=== PATIENT | female | born 1985 | race Caucasian/White ===

== ENCOUNTER 2017-02-06 10:54 | Emergency (ER) | payer MEDICAID ==
--- NOTE | 2017-02-06 11:20 | EDM.PDOC ---
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 The patient's due date is 09/15/17 and she follows with [facility]. I saw this patient for lower abdominal pain and she had a quantitative beta of 1228. Her ultrasound was inconclusive and she has since followed up with Dr. Byrd and she has had an ultrasound in their office documenting a live IUP. Her last quantitative hCG was on January 13 and it was 11,983. The patient has been doing well with this with little vomiting no diarrhea no pelvic cramping no fevers chills chest pain coughing or shortness of breath. The patient last had sexual intercourse 2 nights ago and had no issues with it but yesterday she was having some lower abdominal cramping and she thought it was because she was more active than usual. This morning she woke up to go to the bathroom and did not have much cramping when she wiped after going to the bathroom there was dark brown blood. She subsequently went to the bathroom a second time and there were some clots and some brighter colored blood and she is concerned so she is here. She has no dysuria frequency or urgency no flank pain. She has slight bilateral lower abdominal/pelvic discomfort but is not as bad as last evening. She currently is not using a pad and is not passing any blood nor has she used one since this symptoms started. The patient admits that she is very scared because of her history of a demise trimester and "just wants to know that the baby has a heartbeat". Review of systems: As per history of present illness and below otherwise all systems reviewed and negative. Past medical history: As per history of present illness and as reviewed below otherwise noncontributory. Surgical history: As per history of present illness and as reviewed below otherwise noncontributory. Social history: No reported history of drug or alcohol abuse. Family history: As per history of present illness and as reviewed below otherwise noncontributory. Physical exam: General: Well-developed well-nourished female who is nontoxic and speaking clearly and easily in the ER and moves without distress. Her vital signs were noted by me HEENT: Atraumatic, normocephalic, negative for conjunctival pallor or scleral icterus, mucous membranes moist, throat clear, neck supple, nontender, trachea midline. Lungs: Clear to auscultation, breath sounds equal bilaterally, chest nontender. Heart: S1S2, regular, negative for clicks, rubs, or JVD. Abdomen: Soft, nondistended, nontender. Bowel sounds are normoactive and there are no masses rebound or guarding on palpation Negative for masses or hepatosplenomegaly. Negative for costovertebral tenderness. Pelvis: Stable nontender. Genitourinary: Patient currently has no bleeding in her underwear is not using a pad Rectal: Deferred. Extremities: Atraumatic, negative for cords or calf pain. Neurovascular unremarkable. Neuro: Awake, alert, oriented. Cranial nerves II through XII unremarkable. Cerebellum unremarkable. Motor and sensory unremarkable throughout. Exam nonfocal. Diagnostics: CBC UA urine culture if indicated ABO Rh serum quantitative hCG pelvic ultrasound We will attempt to find heart tones and proceed with ultrasound Therapeutics: none 1248: Case was discussed with ; she is aware of today's events as well as the labs and ultrasound and recommend 2 weeks of pelvic rest close followup and returning for any heavy bleeding. The patient was also made aware of all testing results. Impression: Threatened Definitive disposition and diagnosis as appropriate pending reevaluation and review of above. 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: Musculoskeletal History: Reports: None Psychiatric History: Reports: Anxiety, Bipolar, Depression, Panic attack - Infectious Disease History Infectious Disease History: Reports: Chicken pox Other Infectious Disease History: childhood - Past Surgical History Female Surgical History: Reports: section, D&C Other Female Surgeries/Procedures: 1 Musculoskeletal Surgical History: Reports: Other (see below) Other Musculoskeletal Surgeries/Procedures:: knee surgery, left Social & Family History - Family History Family Medical History: Noncontributory Hematologic: Reports: Other (see below) Other Hematologic Family History: unknown blood disease and lung disease-father, - Tobacco Use Smoking Status *Q: Current Every Day Smoker Years of Tobacco use: 15 Packs/Tins Daily: 0.5 Used Tobacco, but Quit: No Second Hand Smoke Exposure: No - Caffeine Use Caffeine Use: Reports: Coffee, Soda Caffeine Use Comment: 1 each /day - Alcohol Use Days Per Week of Alcohol Use: 1 Number of Drinks Per Day: 2 Total Drinks Per Week: 2 - Recreational Drug Use Recreational Drug Use: No Drug Use in Last 12 Months: Yes Recreational Drug Type: Reports: Marijuana/Hashish Recreational Drug Use Frequency: Not Used In Over 6 Months Recreational Drug Last Use: 2weeks ago - Living Situation & Occupation Living situation: Reports: single (With children) Occupation: employed ED ROS GENERAL - Review of Systems Review Of Systems: ROS reveals no pertinent complaints other than HPI. ED EXAM, GENERAL - Physical Exam Exam: See Below (See dictation) Course - Vital Signs Last Recorded V/S: Last Vital Signs Temp 36.8 C 02/06/17 12:13 Pulse 74 02/06/17 12:13 Resp 16 02/06/17 12:13 BP 111/63 02/06/17 12:13 Pulse Ox 98 02/06/17 12:13 - Orders/Labs/Meds Orders: Active Orders 24 hr Category Date Time Status OB 1st Tri Sgl 1st Gest [US] Stat Exams 02/06/17 11:13 Taken Labs: Laboratory Tests 02/06/17 02/06/17 02/06/17 Range/Units 11:12 11:45 11:45 WBC 7.78 (4.0-11.0) K/uL RBC 4.31 (4.30-5.90) M/uL Hgb 13.7 (12.0-16.0) g/dL Hct 40.0 (36.0-46.0) % MCV 92.8 (80.0-98.0) fL MCH 31.8 (27.0-32.0) pg MCHC 34.3 (31.0-37.0) g/dL RDW Std Deviation 42.5 (28.0-62.0) fl RDW Coeff of Hemant 13 (11.0-15.0) % Plt Count 225 (150-400) K/uL MPV 10.60 (7.40-12.00) fL Neut % (Auto) 63.4 (48.0-80.0) % Lymph % (Auto) 27.8 (16.0-40.0) % Gregg % (Auto) 6.8 (0.0-15.0) % Eos % (Auto) 1.7 (0.0-7.0) % Baso % (Auto) 0.3 (0.0-1.5) % Neut # (Auto) 4.9 (1.4-5.7) K/uL Lymph # (Auto) 2.2 (0.6-2.4) K/uL Gregg # (Auto) 0.5 (0.0-0.8) K/uL Eos # (Auto) 0.1 (0.0-0.7) K/uL Baso # (Auto) 0.0 (0.0-0.1) K/uL Nucleated RBC % 0.0 /100WBC Nucleated RBCs # 0 K/uL HCG, Quant 90104.6 mIU/mL Urine Color YELLOW Urine Appearance CLEAR Urine pH 7.0 (5.0-8.0) Ur Specific Arthur 1.010 (1.001-1.035) Urine Protein NEGATIVE (NEGATIVE) mg/dL Urine Glucose (UA) NEGATIVE (NEGATIVE) mg/dL Urine Ketones NEGATIVE (NEGATIVE) mg/dL Urine Occult Blood NEGATIVE (NEGATIVE) Urine Nitrite NEGATIVE (NEGATIVE) Urine Bilirubin NEGATIVE (NEGATIVE) Urine Urobilinogen 0.2 (<2.0) EU/dL Ur Leukocyte Esterase NEGATIVE (NEGATIVE) Urine RBC 0-1 (0-2/HPF) Urine WBC 0-1 (0-5/HPF) Ur Epithelial Cells RARE (NONE-FEW) Urine Bacteria RARE (NEGATIVE) Blood Type 02/06/17 Range/Units 11:45 WBC (4.0-11.0) K/uL RBC (4.30-5.90) M/uL Hgb (12.0-16.0) g/dL Hct (36.0-46.0) % MCV (80.0-98.0) fL MCH (27.0-32.0) pg MCHC (31.0-37.0) g/dL RDW Std Deviation (28.0-62.0) fl RDW Coeff of Hemant (11.0-15.0) % Plt Count (150-400) K/uL MPV (7.40-12.00) fL Neut % (Auto) (48.0-80.0) % Lymph % (Auto) (16.0-40.0) % Gregg % (Auto) (0.0-15.0) % Eos % (Auto) (0.0-7.0) % Baso % (Auto) (0.0-1.5) % Neut # (Auto) (1.4-5.7) K/uL Lymph # (Auto) (0.6-2.4) K/uL Gregg # (Auto) (0.0-0.8) K/uL Eos # (Auto) (0.0-0.7) K/uL Baso # (Auto) (0.0-0.1) K/uL Nucleated RBC % /100WBC Nucleated RBCs # K/uL HCG, Quant mIU/mL Urine Color Urine Appearance Urine pH (5.0-8.0) Ur Specific Arthur (1.001-1.035) Urine Protein (NEGATIVE) mg/dL Urine Glucose (UA) (NEGATIVE) mg/dL Urine Ketones (NEGATIVE) mg/dL Urine Occult Blood (NEGATIVE) Urine Nitrite (NEGATIVE) Urine Bilirubin (NEGATIVE) Urine Urobilinogen (<2.0) EU/dL Ur Leukocyte Esterase (NEGATIVE) Urine RBC (0-2/HPF) Urine WBC (0-5/HPF) Ur Epithelial Cells (NONE-FEW) Urine Bacteria (NEGATIVE) Blood Type O POSITIVE Departure - Departure Time of Disposition: 12:53 Disposition: Home, Self-Care 01 Condition: good Clinical Impression: Threatened Forms: ED Department Discharge Additional Instructions: The following information is given to patients seen in the emergency department who are being discharged to home. This information is to outline your options for follow-up care. We provide all patients seen in our emergency department with a follow-up referral. The need for follow-up, as well as the timing and circumstances, are variable depending upon the specifics of your emergency department visit. If you don't have a primary care physician on staff, we will provide you with a referral. We always advise you to contact your personal physician following an emergency department visit to inform them of the circumstance of the visit and for follow-up with them and/or the need for any referrals to a consulting specialist. The emergency department will also refer you to a specialist when appropriate. This referral assures that you have the opportunity for followup care with a specialist. All of these measure are taken in an effort to provide you with optimal care, which includes your followup. Under all circumstances we always encourage you to contact your private physician who remains a resource for coordinating your care. When calling for followup care, please make the office aware that this follow-up is from your recent emergency room visit. If for any reason you are refused follow-up, please contact the [facility] emergency department at and ask to speak to the emergency department charge nurse. [facility] [address] [address] Strict pelvic rest as we discussed for the next 2 weeks, push hydration and please call the clinic with any questions or problems. Return to ER as needed and as discussed - My Orders Last 24 Hours: My Active Orders 02/06/17 11:13 OB 1st Tri Sgl 1st Gest [US] Stat - Assessment/Plan Last 24 Hours: My Active Orders 02/06/17 11:13 OB 1st Tri Sgl 1st Gest [US] Stat
[2017-02-06 13:01] VITALS: BP 101/72
--- NOTE | 2017-02-07 18:27 | US ---
EXAM DATE: 02/06/17 PATIENT'S AGE: 31 Patient: RIGO GRADY Facility: [place], [place] Site . Site : 1985 Study: US OB Pelvis [id number] 12:08:40 PM Ordering Physician: Rafaela Su Final Report: HISTORY: with vaginal bleeding. TECHNIQUE: First trimester obstetric ultrasound. Transvaginal imaging was performed. FINDINGS: There is a living single intrauterine gestation with a crown-rump length of 2 cm. This correlates with an 8 week, 5 day gestation with an SHANNAN based on ultrasound measurements of 09/13/2017. heart rate is 183 beats per minute. Normal-appearing yolk sac. There is a approximately 1.8 x 1.0 x 1.6 cm subchorionic bleed inferior to the gestational sac, best appreciated on image # 3 of series 1. Neither ovary clearly seen. IMPRESSION: 1. Living single intrauterine gestation at 8 weeks, 5 days based on ultrasound measurements. 2. Small subchorionic hemorrhage present inferior to the gestational sac measuring 1.8 cm long dimension. 3. Report faxed on 02/07/2016 at 12:41 hours. Dictated by Nima Whelan MD @ 02/06/2017 12:38:34 PM Dictated by: Nima Whelan MD @ 02/06/2017 12:38:40 (Electronic Signature) Report Signed by Proxy and Original Signed Document filed in the Medical Record. MTDD
== END 2017-02-06 13:00 | disposition home or self-care (01) ==
LOC: MW.ED 10:54
DX: O20.0 Threatened abortion (principal); F41.9 Anxiety disorder, unspecified; F32.9 Major depressive disorder, single episode, unspecified; F17.210 Nicotine dependence, cigarettes, uncomplicated; Z88.0 Allergy status to penicillin; Z88.1 Allergy status to other antibiotic agents; Z88.2 Allergy status to sulfonamides
CPT/HCPCS: 36415; 76801; 76801-26; 81001; 84702; 85025; 86900; 86901; 99284; 99284-25

== ENCOUNTER 2017-09-09 04:56 | Inpatient (IN) | payer MEDICAID ==
[2017-09-09] MEDS ORDERED: Sodium Chloride 0.9% 10 ML Syringe FLUSH PRN (04:59)
[2017-09-09] MEDS ORDERED: Sodium Chloride 0.9% 2.5 ML Syringe FLUSH PRN (04:59)
[2017-09-09] MEDS ORDERED: Clindamycin Phosphate in D5W 900 MG in Premix Bag 1 BAG IV ONE ×2 (04:59)
[2017-09-09] MEDS ORDERED: Citric Acid/Sodium Citrate Solution 30 ML Cup PO SCH (05:00)
[2017-09-09] MEDS ORDERED: Oxytocin/0.9 % Sodium Chloride 30 UNIT/500 ML BAG IV SCH (05:00)
[2017-09-09] MEDS: Lactated Ringers 1,000 ML IV SCH ×4 (05:00→18:31)
[2017-09-09] MEDS ORDERED: ePHEDrine 50 MG/ML SDV ONE (07:13)
[2017-09-09] MEDS ORDERED: Ondansetron 4 MG/2 ML SDV ONE (07:13)
[2017-09-09] MEDS ORDERED: Morphine PF 10 MG/10 ML SDV ONE (07:13)
[2017-09-09] MEDS ORDERED: Oxytocin 10 Units/1 ML SDV ONE (07:13)
[2017-09-09] MEDS ORDERED: Sodium Chloride 0.9% 20 ML ONE ×2 (07:14→08:40)
[2017-09-09] MEDS ORDERED: Clindamycin Phosphate in D5W 50 ML IV ONE (07:48)
--- NOTE | 2017-09-09 07:56 | PCM.PREANE ---
Preanesthetic Assessment - Procedure Proposed Procedure: w/tubal ligation (approved) - Anesthesia/Transfusion/Family Hx Anesthesia History: Prior Anesthesia Without Reaction Other Type of Anesthesia Reaction Comment: DENIES ANY PROBLEMS WITH ANESTHESIA Family History of Anesthesia Reaction: No Transfusion History: No Prior Transfusion(s) Intubation History: Unknown - Review of Systems General: Other (obesity) Pulmonary: No Symptoms Cardiovascular: No Symptoms Gastrointestinal: Other (heartburn with pregnanacy, regurg this week) Neurological: Difficulty Walking (due to body habitus) Other: Reports: Depression, Anxiety (hx panic attacks) - Physical Assessment NPO Status Date: 09/08/17 NPO Status Time: 23:00 Height: 5 ft 2.5 in Weight: 260 lb ASA Class: 3 Mental Status: Alert & Oriented x3 Airway Class: Mallampati = 1 Dentition: Reports: Normal Dentition (lower), Dentures (upper denture) Thyro-Mental Finger Breadths: 4 Mouth Opening Finger Breadths: 3 ROM/Head Extension: Full Lungs: Clear to Auscultation, Normal Respiratory Effort Cardiovascular: Regular Rate, Regular Rhythm, No Murmurs - Lab Values: Laboratory Last Values WBC 15.13 K/uL (4.0-11.0) H 09/08/17 09:03 RBC 3.98 M/uL (4.30-5.90) L 09/08/17 09:03 Hgb 13.1 g/dL (12.0-16.0) 09/08/17 09:03 Hct 38.0 % (36.0-46.0) 09/08/17 09:03 MCV 95.5 fL (80.0-98.0) 09/08/17 09:03 MCH 32.9 pg (27.0-32.0) H 09/08/17 09:03 MCHC 34.5 g/dL (31.0-37.0) 09/08/17 09:03 RDW Std Deviation 50.1 fl (28.0-62.0) 09/08/17 09:03 RDW Coeff of Hemant 14 % (11.0-15.0) 09/08/17 09:03 Plt Count 229 K/uL (150-400) 09/08/17 09:03 MPV 11.30 fL (7.40-12.00) 09/08/17 09:03 Nucleated RBC % 0.0 /100WBC 09/08/17 09:03 Nucleated RBCs # 0 K/uL 09/08/17 09:03 Blood Type O POSITIVE 09/08/17 09:03 Antibody Screen NEGATIVE 09/08/17 09:03 - Allergies Allergies/Adverse Reactions: Allergies Allergy/AdvReac Type Severity Reaction Status Date / Time amoxicillin [Amoxicillin] Allergy Hives Verified 02/06/17 11:02 Penicillins Allergy Hives Verified 02/06/17 11:02 Sulfa (Sulfonamide Allergy Hives Verified 02/06/17 11:02 Antibiotics) - Blood Blood Available: Yes Product(s) Available: PRBC (2u) - Anesthesia Plan Pre-Op Medication Ordered: Antacids - Acknowledgements Anesthesia Type Planned: Spinal Pt an Appropriate Candidate for the Planned Anesthesia: Yes Alternatives and Risks of Anesthesia Discussed w Pt/Guardian: Yes Pt/Guardian Understands and Agrees with Anesthesia Plan: Yes Additional Comments: consent signed PreAnesthesia Questionnaire - Past Health History Medical/Surgical History: Denies Medical/Surgical History HEENT History: Reports: Other (See Below) Other HEENT History: wears glasses, top denture Gastrointestinal History: Reports: Other (See Below) Other Gastrointestinal History: heartburn with Genitourinary History: 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: Musculoskeletal History: Reports: None Psychiatric History: Reports: Anxiety, Depression, Panic Attack Endocrine/Metabolic History: Reports: Diabetes, Gestational, Obesity/BMI 30+ - Infectious Disease History Infectious Disease History: Reports: Chicken Pox Other Infectious Disease History: childhood - Past Surgical History Head Surgeries/Procedures: Reports: None Female Surgical History: Reports: Section, D&C Other Female Surgeries/Procedures: 1 Musculoskeletal Surgical History: Reports: Arthroscopic Knee, Other (See Below) Other Musculoskeletal Surgeries/Procedures:: knee surgery, left - SUBSTANCE USE Smoking Status *Q: Current Every Day Smoker Tobacco Use Within Last Twelve Months: Cigarettes Second Hand Smoke Exposure: Yes Days Per Week of Alcohol Use: 1 Number of Drinks Per Day: 2 Total Drinks Per Week: 2 Recreational Drug Use History: No Recreational Drug Type: Reports: Marijuana/Hashish Other Recreational Drug Type: Methamphetamine, recovering addict, 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 Recreational Drug Last Use: 2weeks ago - HOME MEDS Home Medications: Home Meds Pkp106/FA/Omega3/Dha/Fish Oil [ Gummies] 1 cap PO DAILY 02/06/17 [ History] valACYclovir HCl [Valtrex] 1 tab PO BID 09/07/17 [History] - CURRENT (IN HOUSE) MEDS Current Meds: Current Medications Citric Acid/Sodium Citrate (Bicitra Solution) 30 ml PO .ONCE TARAH Lactated Ringer's (Ringers, Lactated) 1,000 mls @ 500 mls/hr IV .BOLUS TARAH Last Admin: 09/09/17 07:00 Dose: 500 mls/hr Oxytocin/Sodium Chloride (Oxytocin 30 Unit/500 Ml-Ns) 30 unit in 500 mls @ 250 mls/hr IV TITRATE TARAH Sodium Chloride (Saline Flush) 10 ml FLUSH ASDIRECTED PRN PRN Reason: Keep Vein Open Sodium Chloride (Saline Flush) 2.5 ml FLUSH ASDIRECTED PRN PRN Reason: Keep Vein Open Discontinued Medications Ephedrine Sulfate (Ephedrine Sulfate) Confirm Administered Dose 50 mg .ROUTE .STK-MED ONE Stop: 09/09/17 07:14 Clindamycin Phosphate 900 mg/ (Premix) 50 mls @ 100 mls/hr IV ASDIRECTED ONE Stop: 09/09/17 05:28 Sodium Chloride (Normal Saline) Confirm Administered Dose 20 mls @ as directed .ROUTE .STK-MED ONE Stop: 09/09/17 07:15 Morphine Sulfate (Duramorph Pf) Confirm Administered Dose 10 mg .ROUTE .STK-MED ONE Stop: 09/09/17 07:14 Ondansetron HCl (Zofran) Confirm Administered Dose 4 mg .ROUTE .STK-MED ONE Stop: 09/09/17 07:14 Oxytocin (Pitocin) Confirm Administered Dose 20 unit .ROUTE .STK-MED ONE Stop: 09/09/17 07:14
[2017-09-09] MEDS ORDERED: fentaNYL 100 MCG/2 ML SDV ONE ×2 (08:26→08:47)
[2017-09-09] MEDS ORDERED: Octyl 2-Cyanoacrylate 1 Tube ONE (09:02)
[2017-09-09] MEDS ORDERED: diphenhydrAMINE 50 MG/ML SDV IVPUSH PRN (09:14)
[2017-09-09] MEDS ORDERED: Aluminum Hydroxide/Magnesium Hydroxide/Simethicone Susp 30 ML Cup PO PRN (09:14)
[2017-09-09] MEDS ORDERED: Bisacodyl 10 MG Supp RECTAL PRN (09:14)
[2017-09-09] MEDS ORDERED: Simethicone 80 MG Tab.Chew PO PRN (09:14)
[2017-09-09] MEDS ORDERED: Acetaminophen/oxyCODONE 325-5 MG Tab PO PRN ×2 (09:14)
[2017-09-09] MEDS ORDERED: Ondansetron 4 MG/2 ML SDV IV PRN (09:14)
[2017-09-09] MEDS ORDERED: Lanolin 100% Cream 7 GM Tube TOP PRN (09:14)
--- NOTE | 2017-09-09 09:24 | PCM.OPNOTE ---
- General Post-Op/Procedure Note Date of Surgery/Procedure: 09/09/17 Operative Procedure(s): Repeat LTCS. Bilateral salpingectomy Findings: Viable male APGARs 9, 9 weight 3770 gm. Intact placenta with 3V cord. Normal appearing pelvis Pre Op Diagnosis: 39 week IUP. Previous C section, desires repeat. undesired fertility. Gestational DM Post-Op Diagnosis: Same Anesthesia Technique: Spinal Primary Surgeon: Elly Byrd Pathology: bilateral fallopian tubes Fluid Replacement, Intraop: 2,000 EBL in mLs: 500 Condition: Good Free Text/Narrative:: Dictation [id number]
[2017-09-09] MEDS: Ketorolac 30 MG/ML SDV IVPUSH SCH ×3 (09:40→21:21)
--- NOTE | 2017-09-09 09:56 | PCM.POSTAN ---
POST ANESTHESIA ASSESSMENT - MENTAL STATUS Mental Status: Alert, Oriented - RESPIRATORY Respiratory Status: Respiratory Rate WNL, Airway Patent, O2 Saturation Stable - CARDIOVASCULAR CV Status: Pulse Rate WNL, Blood Pressure Stable - GASTROINTESTINAL GI Status: No Symptoms - PAIN Pain Score: 5 (OK without any meds) - POST OP HYDRATION Hydration Status: Adequate & Stable
[2017-09-09] MEDS ORDERED: Naloxone 0.4 MG/ML Syringe IVPUSH PRN (10:12)
--- NOTE | 2017-09-09 10:28 | OR ---
SURGEON: Elly Byrd M.D. DATE OF PROCEDURE: 09/09/2017 PREOPERATIVE DIAGNOSES: 1. 39-week intrauterine . 2. Previous section and desires repeat. 3. Undesired fertility. 4. Gestational diabetes. POSTOPERATIVE DIAGNOSES: 1. 39-week intrauterine . 2. Previous section and desires repeat. 3. Undesired fertility. 4. Gestational diabetes. PROCEDURES: Repeat low-transverse section with bilateral salpingectomy. ANESTHESIA: Spinal. ESTIMATED BLOOD LOSS: 500 mL. FLUIDS: 2000 mL of crystalloid. COMPLICATIONS: None known. FINDINGS: Viable male, score 9 at 1 minute and 9 at 5 minutes. Weight of 3770 grams. Intact placenta, 3-vessel cord. Normal appearing pelvis. Normal appearing ovaries and fallopian tubes. DISPOSITION: The patient to PACU in stable condition and infant to nursery. PROCEDURE DETAILS: Bertha is a 32-year-old, G2, P1, at 39 week's gestation, who presented this morning for scheduled repeat delivery. Risks of the procedure have been discussed with her and proper consent was obtained. She no longer desires fertility, has underwent counseling, and she would like to proceed with permanent control with bilateral salpingectomy at the time of the repeat C- section. Risks of the procedures have been discussed with her. Proper consent obtained as well as from the Ethics Committee. The patient was taken to the operating room, where she underwent spinal anesthetic, was then placed in dorsal supine position with leftward tilt, SCDs to the lower extremities, and Ferreira to gravity. She was prepped and draped in the usual sterile fashion. She received clindamycin prophylactically. Time-out was performed. Anesthesia was tested and found to be adequate. The low-transverse incision was made above the level of the pannus. This was carried down to the level of the rectus fascia, which was incised in midline and lateralized on either side sharply and bluntly. The superior aspect of the fascia was tented up, dissected sharply and bluntly away from underlying muscles. In a similar aspect, this was performed in the inferior aspect of the fascia. Rectus muscles were in the midline. Peritoneum was entered and dissected sharply. The rectus muscles and peritoneum were now lateralized bluntly. Uterine position and position palpated. Self-retaining retractor gently placed. The uterovesical reflection visualized. Bladder flap was created sharply and bluntly. Bladder was mobilized away from lower uterine segment. A low-transverse hysterotomy was performed. Uterine cavity was entered with the blunt end of the scalpel. The hysterotomy was lateralized bluntly. Amniotomy was performed. Clear fluid was returned. The infant's head was flexed. The infant's head was delivered from the pelvis. Fundal pressure was applied. The infant's head was delivered followed by anterior shoulder, posterior shoulder, and remainder of the body without difficulty. The 's oropharynx and nares were bulb suctioned. Cord was clamped x2 and cut. Infant was crying vigorously. Infant was handed off to attending nursing staff. Cord arterial, cord venous, and cord blood sampling were obtained. The placenta was now delivered. Uterine cavity was cleared of all clot and debris. Hysterotomy was repaired using 0 Vicryl continuous running locked fashion followed by re-imbricating layer. The posterior aspect of the uterus was inspected and no defects or hematomas were found to be forming. Regions well irrigated and suction dried. Attention was now turned to performing salpingectomy bilateral. The left fallopian tube was isolated with [place] clamps and salpingectomy performed with Harmonic Wave. In a similar fashion, this was performed on the patient's right side. The salpingectomy sites were now inspected. Any areas of oozing were cauterized. Region appeared hemostatic, well irrigated, and suction dried. Uterus was returned to abdominal cavity. Hysterotomy was once again inspected, well irrigated, and suction dried as well as the colonic gutters. Hysterotomy site was found to be hemostatic. The salpingectomy site was once again inspected and found to be hemostatic. Self-retaining retractor was gently removed. Bladder blade was placed. Rich retractors were placed. Again inspected the hysterotomy and the salpingectomy sites, all were found to be hemostatic. Rectus muscle was reapproximated using 0 Vicryl with inverted mattress suture technique. Anterior aspect of the muscle and posterior aspect of the fascia closely inspected. Any areas of oozing were cauterized. The rectus fascia was reapproximated using 0 Vicryl in continuous running fashion beginning laterally on either side and meeting in the midline. Subcutaneous tissue was well irrigated and suction dried. Any areas of oozing were cauterized. The deep subcutaneous tissue was reapproximated using 3-0 plain in continuous running fashion. Skin edges were now reapproximated using a 3-0 Vicryl in subcuticular fashion followed by Dermabond. The uterus remained firm. Hemostasis appeared evident. Sponge, instrument, and needle counts were correct x2. The patient tolerated the procedure well. She will go to PACU in stable condition and to nursery. ADÁN SERVIN /[id number]
[2017-09-09] MEDS: Nalbuphine 10 MG/1 ML Vial IVPUSH PRN ×2 (12:13→18:32)
--- NOTE | 2017-09-09 18:46 | PCM48HPAN ---
Post Anesthesia Note - EVALUATION WITHIN 48HRS OF ANESTHETIC Vital Signs in Normal Range: Yes Patient Participated in Evaluation: Yes Respiratory Function Stable: Yes Airway Patent: Yes Cardiovascular Function Stable: Yes Hydration Status Stable: Yes Pain Control Satisfactory: Yes Nausea and Vomiting Control Satisfactory: Yes Mental Status Recovered: Yes
[2017-09-09] MEDS: Docusate Sodium 100 MG Cap PO SCH (21:22)
[2017-09-09] MEDS: Acetaminophen/oxyCODONE 325-5 MG Tab PO PRN (21:22)
[2017-09-10] MEDS: Ketorolac 30 MG/ML SDV IVPUSH SCH ×2 (03:20→08:58)
--- NOTE | 2017-09-10 07:50 | PCM.PNPP ---
- General Info Date of Service: 09/10/17 Admission Dx/Problem (Free Text): 32yo P2 s/p Repeat and BTL Subjective Update: Patient seen at bedside , denies any complains today , villagomez catheter removed , she voided Functional Status: Reports: Pain Controlled, Tolerating Diet, Ambulating, Urinating - Review of Systems General: Reports: No Symptoms HEENT: Reports: No Symptoms Pulmonary: Reports: No Symptoms Cardiovascular: Reports: No Symptoms Gastrointestinal: Reports: No Symptoms Genitourinary: Reports: No Symptoms Musculoskeletal: Reports: No Symptoms Skin: Reports: No Symptoms Neurological: Reports: No Symptoms Psychiatric: Reports: No Symptoms - General Info Date of Service: 09/10/17 - Patient Data Vital Signs - Most Recent: Last Vital Signs Temp 36.2 C 09/10/17 04:00 Pulse 94 09/10/17 06:00 Resp 17 09/10/17 06:00 BP 110/80 09/10/17 04:00 Pulse Ox 96 09/10/17 06:00 Weight - Most Recent: 117.934 kg I&O - Last 24 Hours: Intake & Output 09/09/17 09/10/17 09/10/17 22:59 06:59 14:59 Intake Total 1497 1000 Output Total 300 1100 Balance 1197 -100 Lab Results - Last 24 Hours: Laboratory Results - last 24 hr 09/10/17 09/10/17 Range/Units 05:50 05:50 Hgb 10.9 L (12.0-16.0) g/dL Hct 32.4 L (36.0-46.0) % Fasting Glucose 132 H (60-110) mg/dL Med Orders - Current: Current Medications Al Hydroxide/Mg Hydroxide (Mag-Al Plus) 30 ml PO Q8H PRN PRN Reason: Heartburn Bisacodyl (Dulcolax) 10 mg RECTAL .ONCE PRN PRN Reason: Constipation Citric Acid/Sodium Citrate (Bicitra Solution) 30 ml PO .ONCE [facility] Last Admin: 09/09/17 07:57 Dose: 30 ml Diphenhydramine HCl (Benadryl) 25 mg IVPUSH Q6H PRN PRN Reason: Itching or Nausea Docusate Sodium (Colace) 100 mg PO BID [facility] Last Admin: 09/09/17 21:22 Dose: 100 mg Emollient Ointment (Lansinoh Hpa) 0 gm TOP ASDIRECTED PRN PRN Reason: Sore Nipples Lactated Ringer's (Ringers, Lactated) 1,000 mls @ 500 mls/hr IV .BOLUS [facility] Last Admin: 09/09/17 07:00 Dose: 500 mls/hr Oxytocin/Sodium Chloride (Oxytocin 30 Unit/500 Ml-Ns) 30 unit in 500 mls @ 250 mls/hr IV TITRATE [facility] Lactated Ringer's (Ringers, Lactated) 1,000 mls @ 125 mls/hr IV ASDIRECTED [facility] Last Admin: 09/09/17 18:31 Dose: 125 mls/hr Ibuprofen (Motrin) 800 mg PO Q8H PRN PRN Reason: mild pain or fever Ketorolac Tromethamine (Toradol) 30 mg IVPUSH Q6H [facility] Stop: 09/10/17 09:16 Last Admin: 09/10/17 03:20 Dose: 30 mg Nalbuphine HCl (Nubain) 5 mg IVPUSH Q3H PRN PRN Reason: Pruritis Stop: 09/10/17 10:15 Last Admin: 09/09/17 18:32 Dose: 5 mg Naloxone HCl (Narcan) 0.1 mg IVPUSH ONETIME PRN PRN Reason: Respiratory Depression Stop: 09/10/17 10:15 Ondansetron HCl (Zofran) 4 mg IV Q4H PRN PRN Reason: Nausea/Vomiting Oxycodone/Acetaminophen (Percocet 325-5 Mg) 1 tab PO Q6H PRN PRN Reason: Pain Last Admin: 09/09/17 21:22 Dose: 1 tab Simethicone (Simethicone) 80 mg PO Q4H PRN PRN Reason: Gas Sodium Chloride (Saline Flush) 10 ml FLUSH ASDIRECTED PRN PRN Reason: Keep Vein Open Sodium Chloride (Saline Flush) 2.5 ml FLUSH ASDIRECTED PRN PRN Reason: Keep Vein Open Discontinued Medications Ephedrine Sulfate (Ephedrine Sulfate) Confirm Administered Dose 50 mg .ROUTE .STK-MED ONE Stop: 09/09/17 07:14 Fentanyl (Sublimaze) Confirm Administered Dose 100 mcg .ROUTE .STK-MED ONE Stop: 09/09/17 08:27 Fentanyl (Sublimaze) Confirm Administered Dose 100 mcg .ROUTE .STK-MED ONE Stop: 09/09/17 08:48 Clindamycin Phosphate 900 mg/ (Premix) 50 mls @ 100 mls/hr IV ASDIRECTED ONE Stop: 09/09/17 05:28 Last Admin: 09/09/17 07:56 Dose: 100 mls/hr Sodium Chloride (Normal Saline) Confirm Administered Dose 20 mls @ as directed .ROUTE .STK-MED ONE Stop: 09/09/17 07:15 Clindamycin Phosphate (Cleocin In D5w) Confirm Administered Dose 50 mls @ as directed IV .STK-MED ONE Stop: 09/09/17 07:49 Last Admin: 09/09/17 11:16 Dose: Not Given Sodium Chloride (Normal Saline) Confirm Administered Dose 20 mls @ as directed .ROUTE .STK-MED ONE Stop: 09/09/17 08:41 Morphine Sulfate (Duramorph Pf) Confirm Administered Dose 10 mg .ROUTE .STK-MED ONE Stop: 09/09/17 07:14 Octyl Cyanoacrylate (Dermabond Advance) Confirm Administered Dose 1 applic .ROUTE .STK-MED ONE Stop: 09/09/17 09:03 Ondansetron HCl (Zofran) Confirm Administered Dose 4 mg .ROUTE .STK-MED ONE Stop: 09/09/17 07:14 Oxycodone/Acetaminophen (Percocet 325-5 Mg) 1 tab PO Q4H PRN PRN Reason: Pain (moderate 4-6) Oxycodone/Acetaminophen (Percocet 325-5 Mg) 2 tab PO Q4H PRN PRN Reason: Pain (moderate 4-6) Oxytocin (Pitocin) Confirm Administered Dose 20 unit .ROUTE .STK-MED ONE Stop: 09/09/17 07:14 - Interaction Support Person: - Recovery Exam Fundal Tone: Firm Fundal Level: At Umbilicus Fundal Placement: Midline Lochia Amount: Scant Lochia Color: Rubra/Red Perineum Description: Intact, Minimal Bruising/Swelling Episiotomy/Laceration: None Bladder Status: Indwelling Catheter in Place Urinary Elimination: Indwelling Catheter - Exam General: Alert, Oriented Lungs: Clear to Auscultation, Normal Respiratory Effort Cardiovascular: Regular Rate, Regular Rhythm GI/Abdominal Exam: Normal Bowel Sounds, Other (Transverse incision , clean dry and intact ) Extremities: Pedal Edema (Mild pitting pedal edema , SCDs if in bed ) Neurological: No New Focal Deficit - Problem List & Annotations (1) Status post repeat low transverse section SNOMED Code(s): 507593812, 076306004, 714659404 Code(s): Z98.891 - HISTORY OF UTERINE SCAR FROM PREVIOUS SURGERY Status: Acute Current Visit: Yes (2) Tubal ligation status SNOMED Code(s): 971345673 Code(s): Z98.51 - TUBAL LIGATION STATUS Status: Acute Current Visit: Yes - Problem List Review Problem List Initiated/Reviewed/Updated: Yes - Assessment Assessment:: 32 yo P2 s/p repeat LTCS and tubal ligation - Plan Plan:: Pain control as needed ADA diet Ambulate Continue Possible D/C home tomorrow
[2017-09-10] MEDS: Docusate Sodium 100 MG Cap PO SCH ×2 (08:57→20:45)
[2017-09-10] MEDS ORDERED: Acetaminophen/oxyCODONE 325-5 MG Tab PO PRN (11:21)
[2017-09-10] MEDS: Acetaminophen/oxyCODONE 325-5 MG Tab PO PRN ×2 (11:34→16:20)
[2017-09-10] MEDS: Ibuprofen 800 MG Tab PO PRN (16:20)
[2017-09-11] MEDS: Acetaminophen/oxyCODONE 325-5 MG Tab PO PRN ×2 (00:37→10:13)
[2017-09-11] MEDS: Ibuprofen 800 MG Tab PO PRN ×2 (00:38→10:14)
[2017-09-11 08:28] VITALS: BP 123/57
[2017-09-11 10:10] LABS: CHLORIDE,CL 108 mmol/L (98-110); SODIUM,NA 140 mmol/L (136-146)
[2017-09-11] MEDS: Docusate Sodium 100 MG Cap PO SCH (10:13)
--- NOTE | 2017-09-11 10:56 | PCM.PNPP ---
- General Info Date of Service: 09/11/17 Admission Dx/Problem (Free Text): 32yo P2 s/p Repeat and BTL , POD2 Subjective Update: Patient seen at bedside, she complains of swelling, BP is normal, denies headache , Blurring vision and right upper quadrant pain Functional Status: Reports: Pain Controlled, Tolerating Diet, Ambulating, Urinating - Review of Systems General: Reports: No Symptoms HEENT: Reports: No Symptoms Pulmonary: Reports: No Symptoms Cardiovascular: Reports: No Symptoms Gastrointestinal: Reports: No Symptoms Genitourinary: Reports: No Symptoms Musculoskeletal: Reports: No Symptoms Skin: Reports: No Symptoms Neurological: Reports: No Symptoms Psychiatric: Reports: No Symptoms - General Info Date of Service: 09/11/17 - Patient Data Vital Signs - Most Recent: Last Vital Signs Temp 36.8 C 09/11/17 08:00 Pulse 89 09/11/17 08:00 Resp 18 09/11/17 08:00 BP 123/57 L 09/11/17 08:00 Pulse Ox 98 09/11/17 08:00 Weight - Most Recent: 117.934 kg Lab Results - Last 24 Hours: Laboratory Results - last 24 hr 09/11/17 Range/Units 09:43 Sodium 140 (136-146) mmol/L Potassium 4.0 (3.5-5.1) mmol/L Chloride 108 (98-110) mmol/L Carbon Dioxide 24 (21-31) mmol/L BUN 8 (6.0-23.0) mg/dL Creatinine 0.7 (0.6-1.5) mg/dL Est Cr Clr Drug Dosing 91.62 mL/min Estimated GFR (MDRD) > 60.0 ml/min Glucose 150 H (60-110) mg/dL Calcium 8.1 L (8.8-10.8) mg/dL Total Bilirubin 0.4 (0.1-1.5) mg/dL AST 20 (5-40) IU/L ALT 14 (8-54) IU/L Alkaline Phosphatase 98 (40-150) Total Protein 4.8 L (6.0-8.0) g/dL Albumin 2.7 L (3.5-5.0) g/dL Globulin 2.1 (2.0-3.5) g/dL Albumin/Globulin Ratio 1.3 (1.3-2.8) Med Orders - Current: Current Medications Al Hydroxide/Mg Hydroxide (Mag-Al Plus) 30 ml PO Q8H PRN PRN Reason: Heartburn Bisacodyl (Dulcolax) 10 mg RECTAL .ONCE PRN PRN Reason: Constipation Citric Acid/Sodium Citrate (Bicitra Solution) 30 ml PO .ONCE [facility] Last Admin: 09/09/17 07:57 Dose: 30 ml Diphenhydramine HCl (Benadryl) 25 mg IVPUSH Q6H PRN PRN Reason: Itching or Nausea Docusate Sodium (Colace) 100 mg PO BID [facility] Last Admin: 09/11/17 10:13 Dose: 100 mg Emollient Ointment (Lansinoh Hpa) 0 gm TOP ASDIRECTED PRN PRN Reason: Sore Nipples Lactated Ringer's (Ringers, Lactated) 1,000 mls @ 500 mls/hr IV .BOLUS [facility] Last Admin: 09/09/17 07:00 Dose: 500 mls/hr Oxytocin/Sodium Chloride (Oxytocin 30 Unit/500 Ml-Ns) 30 unit in 500 mls @ 250 mls/hr IV TITRATE [facility] Lactated Ringer's (Ringers, Lactated) 1,000 mls @ 125 mls/hr IV ASDIRECTED [facility] Last Admin: 09/09/17 18:31 Dose: 125 mls/hr Ibuprofen (Motrin) 800 mg PO Q8H PRN PRN Reason: mild pain or fever Last Admin: 09/11/17 10:14 Dose: 800 mg Ondansetron HCl (Zofran) 4 mg IV Q4H PRN PRN Reason: Nausea/Vomiting Oxycodone/Acetaminophen (Percocet 325-5 Mg) 1 tab PO Q6H PRN PRN Reason: Pain Last Admin: 09/10/17 16:20 Dose: 1 tab Oxycodone/Acetaminophen (Percocet 325-5 Mg) 1 tab PO Q4H PRN PRN Reason: Pain (moderate 4-6) Last Admin: 09/11/17 10:13 Dose: 1 tab Oxycodone/Acetaminophen (Percocet 325-5 Mg) 2 tab PO Q4H PRN PRN Reason: Pain (moderate 4-6) Last Admin: 09/10/17 20:45 Dose: 2 tab Simethicone (Simethicone) 80 mg PO Q4H PRN PRN Reason: Gas Sodium Chloride (Saline Flush) 10 ml FLUSH ASDIRECTED PRN PRN Reason: Keep Vein Open Sodium Chloride (Saline Flush) 2.5 ml FLUSH ASDIRECTED PRN PRN Reason: Keep Vein Open Discontinued Medications Ephedrine Sulfate (Ephedrine Sulfate) Confirm Administered Dose 50 mg .ROUTE .STK-MED ONE Stop: 09/09/17 07:14 Fentanyl (Sublimaze) Confirm Administered Dose 100 mcg .ROUTE .STK-MED ONE Stop: 09/09/17 08:27 Fentanyl (Sublimaze) Confirm Administered Dose 100 mcg .ROUTE .STK-MED ONE Stop: 09/09/17 08:48 Clindamycin Phosphate 900 mg/ (Premix) 50 mls @ 100 mls/hr IV ASDIRECTED ONE Stop: 09/09/17 05:28 Last Admin: 09/09/17 07:56 Dose: 100 mls/hr Sodium Chloride (Normal Saline) Confirm Administered Dose 20 mls @ as directed .ROUTE .STK-MED ONE Stop: 09/09/17 07:15 Clindamycin Phosphate (Cleocin In D5w) Confirm Administered Dose 50 mls @ as directed IV .STK-MED ONE Stop: 09/09/17 07:49 Last Admin: 09/09/17 11:16 Dose: Not Given Sodium Chloride (Normal Saline) Confirm Administered Dose 20 mls @ as directed .ROUTE .STK-MED ONE Stop: 09/09/17 08:41 Ketorolac Tromethamine (Toradol) 30 mg IVPUSH Q6H [facility] Stop: 09/10/17 09:16 Last Admin: 09/10/17 08:58 Dose: 30 mg Morphine Sulfate (Duramorph Pf) Confirm Administered Dose 10 mg .ROUTE .STK-MED ONE Stop: 09/09/17 07:14 Nalbuphine HCl (Nubain) 5 mg IVPUSH Q3H PRN PRN Reason: Pruritis Stop: 09/10/17 10:15 Last Admin: 09/09/17 18:32 Dose: 5 mg Naloxone HCl (Narcan) 0.1 mg IVPUSH ONETIME PRN PRN Reason: Respiratory Depression Stop: 09/10/17 10:15 Octyl Cyanoacrylate (Dermabond Advance) Confirm Administered Dose 1 applic .ROUTE .STK-MED ONE Stop: 09/09/17 09:03 Ondansetron HCl (Zofran) Confirm Administered Dose 4 mg .ROUTE .STK-MED ONE Stop: 09/09/17 07:14 Oxycodone/Acetaminophen (Percocet 325-5 Mg) 1 tab PO Q4H PRN PRN Reason: Pain (moderate 4-6) Oxycodone/Acetaminophen (Percocet 325-5 Mg) 2 tab PO Q4H PRN PRN Reason: Pain (moderate 4-6) Oxytocin (Pitocin) Confirm Administered Dose 20 unit .ROUTE .STK-MED ONE Stop: 09/09/17 07:14 - Interaction Support Person: - Recovery Exam Fundal Tone: Firm Fundal Level: 1 Fingerbreadths Below Umbilicus Fundal Placement: Midline Lochia Amount: Scant Lochia Color: Rubra/Red Perineum Description: Intact, Minimal Bruising/Swelling Episiotomy/Laceration: None Bladder Status: Voiding Urinary Elimination: Indwelling Catheter - Exam General: Alert, Oriented Lungs: Clear to Auscultation Cardiovascular: Regular Rate, Regular Rhythm GI/Abdominal Exam: Normal Bowel Sounds, Other (Transverse incision with c/d/i ) Extremities: Pedal Edema (1+ ) Psy/Mental Status: Alert - Problem List & Annotations (1) Status post repeat low transverse section SNOMED Code(s): 180344703, 848027220, 514371964 Code(s): Z98.891 - HISTORY OF UTERINE SCAR FROM PREVIOUS SURGERY Status: Acute Current Visit: Yes (2) Tubal ligation status SNOMED Code(s): 907129534 Code(s): Z98.51 - TUBAL LIGATION STATUS Status: Acute Current Visit: Yes - Problem List Review Problem List Initiated/Reviewed/Updated: Yes - Assessment Assessment:: 32 yo P2 s/p repeat LTCS and tubal ligation, POD 2 with pedal swelling , BMP - wnl - Plan Plan:: Pain control as needed ADA diet Ambulate Continue Possible D/C home today Given preclampsia precautions
== END 2017-09-11 12:00 | disposition home or self-care (01) | DRG 766 ==
LOC: MW.OB 04:56 → MERGE 08:00 → MW.OB 08:59
PROVIDERS: ADMIT Obstetrics & Gynecology; ATTEND Obstetrics & Gynecology
PROC: 10D00Z1 Extraction of Products of Conception, Low, Open Approach (ICD-10-PCS; principal; 2017-09-09)
PROC: 0UT70ZZ Resection of Bilateral Fallopian Tubes, Open Approach (ICD-10-PCS; 2017-09-09)
DX: O24.429 Gestational diabetes mellitus in childbirth, unspecified control (principal); Z3A.39 39 weeks gestation of pregnancy; Z37.0 Single live birth; Z30.2 Encounter for sterilization
CPT/HCPCS: 00840; 36415; 59025; 80053; 82947; 85014; 85018; 85027; 86850; 86900; 86901; 88302; A9270-GY; J1885; J2270; J2300; J2405; J2590; J3010; J7120

== ENCOUNTER 2018-08-08 12:37 | Day surgery (SDC) | payer BC ==
[~2018-08-08 12:37] MED LIST: Lactated Ringers 1,000 ML IV SCH; Sodium Chloride 0.9% 10 ML Syringe FLUSH PRN; Sodium Chloride 0.9% 2.5 ML Syringe FLUSH PRN
[2018-08-08] MEDS ORDERED: Propofol 200 MG/20 ML SDV ONE (13:21)
[2018-08-08] MEDS ORDERED: Ondansetron 4 MG/2 ML SDV ONE (13:21)
[2018-08-08] MEDS ORDERED: Lidocaine 2% 5 ML SDV ONE (13:21)
[2018-08-08] MEDS ORDERED: Midazolam 1 MG/ML 2 ML SDV ONE (13:21)
[2018-08-08] MEDS ORDERED: fentaNYL 250 MCG/5 ML SDV ONE (13:21)
--- NOTE | 2018-08-08 14:20 | PCM.PREANE ---
Preanesthetic Assessment - Anesthesia/Transfusion/Family Hx Anesthesia History: Prior Anesthesia Without Reaction Other Type of Anesthesia Reaction Comment: DENIES ANY PROBLEMS WITH ANESTHESIA Family History of Anesthesia Reaction: No Transfusion History: No Prior Transfusion(s) Intubation History: Unknown - Review of Systems General: No Symptoms Pulmonary: No Symptoms Cardiovascular: No Symptoms Gastrointestinal: No Symptoms Neurological: No Symptoms Other: Reports: None - Physical Assessment NPO Status Date: 08/07/18 NPO Status Time: 00:00 O2 Sat by Pulse Oximetry: 97 Respiratory Rate: 16 Vital Signs: Last Vital Signs Temp 36.6 C 08/08/18 13:15 Pulse 79 08/08/18 13:15 Resp 16 08/08/18 13:15 BP 129/77 08/08/18 13:15 Pulse Ox 97 08/08/18 13:15 Height: 1.59 m Weight: 112.037 kg ASA Class: 3 Mental Status: Alert & Oriented x3 Airway Class: Mallampati = 2 Dentition: Reports: Dentures (upper) ROM/Head Extension: Full - Lab Values: Laboratory Last Values WBC 8.09 K/uL (4.0-11.0) 08/08/18 13:27 RBC 4.67 M/uL (4.30-5.90) 08/08/18 13:27 Hgb 14.8 g/dL (12.0-16.0) 08/08/18 13:27 Hct 43.1 % (36.0-46.0) 08/08/18 13:27 MCV 92.3 fL (80.0-98.0) 08/08/18 13:27 MCH 31.7 pg (27.0-32.0) 08/08/18 13:27 MCHC 34.3 g/dL (31.0-37.0) 08/08/18 13:27 RDW Std Deviation 43.2 fl (28.0-62.0) 08/08/18 13:27 RDW Coeff of Hemant 13 % (11.0-15.0) 08/08/18 13:27 Plt Count 213 K/uL (150-400) 08/08/18 13:27 MPV 10.80 fL (7.40-12.00) 08/08/18 13:27 Nucleated RBC % 0.0 /100WBC 08/08/18 13:27 Nucleated RBCs # 0 K/uL 08/08/18 13:27 Urine HCG, Qual NEGATIVE (NEGATIVE) 08/08/18 05:00 - Allergies Allergies/Adverse Reactions: Allergies Allergy/AdvReac Type Severity Reaction Status Date / Time amoxicillin [Amoxicillin] Allergy Hives Verified 08/04/18 07:58 metronidazole Allergy cough, Verified 08/04/18 07:58 reddness, heavy chest Penicillins Allergy Hives Verified 08/04/18 07:58 Sulfa (Sulfonamide Allergy Hives Verified 08/04/18 07:58 Antibiotics) - Anesthesia Plan Free Text/Narrative:: States has not had acid reflux for about 8 months but before then it was very random - Acknowledgements Anesthesia Type Planned: General Anesthesia, MAC (GA vs MAC) Pt an Appropriate Candidate for the Planned Anesthesia: Yes Alternatives and Risks of Anesthesia Discussed w Pt/Guardian: Yes Pt/Guardian Understands and Agrees with Anesthesia Plan: Yes PreAnesthesia Questionnaire - Past Health History Medical/Surgical History: Denies Medical/Surgical History HEENT History: Reports: Other (See Below) Other HEENT History: wears glasses occassionally, top denture Gastrointestinal History: Reports: Other (See Below) Other Gastrointestinal History: heartburn with Genitourinary History: Reports: None 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: , 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 Musculoskeletal History: Reports: None Neurological History: Reports: Migraines Psychiatric History: Reports: Anxiety, Depression Endocrine/Metabolic History: Reports: Diabetes, Gestational, Obesity/BMI 30+ Dermatologic History: Reports: Other (See Below) Other Dermatologic History: MRSA positive - Infectious Disease History Infectious Disease History: Reports: Chicken Pox Other Infectious Disease History: childhood - Past Surgical History Head Surgeries/Procedures: Reports: None Female Surgical History: Reports: Section, D&C Other Female Surgeries/Procedures: x2, salpingectomy with last c/ section Musculoskeletal Surgical History: Reports: Arthroscopic Knee, Other (See Below) Other Musculoskeletal Surgeries/Procedures:: knee surgery, left - SUBSTANCE USE Smoking Status *Q: Current Every Day Smoker Tobacco Use Within Last Twelve Months: Cigarettes Recreational Drug Use History: No - HOME MEDS Home Medications: Home Meds Acetaminophen [Tylenol] 2 tab PO ASDIRECTED PRN 08/04/18 [History] Ibuprofen 1 - 2 tab PO ASDIRECTED PRN 08/04/18 [History] - CURRENT (IN HOUSE) MEDS Current Meds: Current Medications Fentanyl (Sublimaze) 50 mcg IVPUSH Q5M PRN PRN Reason: Pain (severe 7-10) Stop: 08/09/18 13:29 Lactated Ringer's (Ringers, Lactated) 1,000 mls @ 125 mls/hr IV ASDIRECTED [facility] Last Admin: 08/08/18 13:44 Dose: 125 mls/hr Sodium Chloride (Saline Flush) 10 ml FLUSH ASDIRECTED PRN PRN Reason: Keep Vein Open Sodium Chloride (Saline Flush) 2.5 ml FLUSH ASDIRECTED PRN PRN Reason: Keep Vein Open Discontinued Medications Fentanyl (Sublimaze) Confirm Administered Dose 250 mcg .ROUTE .STK-MED ONE Stop: 08/08/18 13:22 Lidocaine (Xylocaine-Mpf 2%) Confirm Administered Dose 5 ml .ROUTE .STK-MED ONE Stop: 08/08/18 13:22 Midazolam HCl (Versed 1 Mg/Ml) Confirm Administered Dose 2 mg .ROUTE .STK-MED ONE Stop: 08/08/18 13:22 Ondansetron HCl (Zofran) Confirm Administered Dose 4 mg .ROUTE .STK-MED ONE Stop: 08/08/18 13:22 Propofol (Diprivan 20 Ml) Confirm Administered Dose 200 mg .ROUTE .STK-MED ONE Stop: 08/08/18 13:22
[2018-08-08] MEDS ORDERED: ePHEDrine 50 MG/ML SDV ONE (14:56)
--- NOTE | 2018-08-08 15:14 | PCM.OPNOTE ---
- General Post-Op/Procedure Note Date of Surgery/Procedure: 08/08/18 Operative Procedure(s): Diagnostic hysteroscopy, D&C, thermal endometrial ablation Findings: normal appearing enlarged endometrial cavity Pre Op Diagnosis: menorrhagia Post-Op Diagnosis: Same Anesthesia Technique: General LMA Primary Surgeon: Elly Byrd Pathology: endometrial curretings Fluid Replacement, Intraop: 700 EBL in mLs: 20 Complications: none known Condition: Good Free Text/Narrative:: Dictation [id number]
[2018-08-08] MEDS: fentaNYL 100 MCG/2 ML SDV IVPUSH PRN ×2 (15:26→15:31)
--- NOTE | 2018-08-08 15:33 | PCM.POSTAN ---
POST ANESTHESIA ASSESSMENT - MENTAL STATUS Mental Status: Alert, Oriented - VITAL SIGNS Pulse Rate: 98 SaO2: 99 (RA) Resp Rate: 18 Blood Pressure: 115/66 - RESPIRATORY Respiratory Status: Respiratory Rate WNL, Airway Patent, O2 Saturation Stable - CARDIOVASCULAR CV Status: Pulse Rate WNL, Blood Pressure Stable - GASTROINTESTINAL GI Status: No Symptoms - PAIN Pain Score: 0 - POST OP HYDRATION Hydration Status: Adequate & Stable
[2018-08-08] MEDS ORDERED: Ketorolac 30 MG/ML SDV IVPUSH ONE (15:46)
--- NOTE | 2018-08-08 15:51 | PCM48HPAN ---
Post Anesthesia Note - EVALUATION WITHIN 48HRS OF ANESTHETIC Vital Signs in Normal Range: Yes Patient Participated in Evaluation: Yes Respiratory Function Stable: Yes Airway Patent: Yes Cardiovascular Function Stable: Yes Hydration Status Stable: Yes Pain Control Satisfactory: Yes Nausea and Vomiting Control Satisfactory: Yes Mental Status Recovered: Yes Pulse Rate: 98 Resp Rate: 18 Blood Pressure: 115/66
[2018-08-08 16:11] VITALS: BP 110/67
--- NOTE | 2018-08-08 22:16 | OR ---
SURGEON: Elly Byrd M.D. DATE OF PROCEDURE: 08/08/2018 PREOPERATIVE DIAGNOSIS: Menorrhagia. POSTOPERATIVE DIAGNOSIS: Menorrhagia. PROCEDURES: Diagnostic hysteroscopy, dilation and curettage of endometrium, and thermal endometrial ablation. ANESTHESIA: General LMA. FLUIDS: 700 mL of crystalloid. ESTIMATED BLOOD LOSS: 20 mL. COMPLICATIONS: None. FINDINGS: A large normal-appearing endometrial cavity. DISPOSITION: The patient to PACU in stable. INDICATION: Bertha is a 33-year-old female, who has ongoing menorrhagia. At this time, endometrial biopsy has been benign. Sonohysterogram identifies no endometrial cavity lesions. Therefore, after discussing options, she would like to proceed with surgical intervention in the form of thermal endometrial ablation. Risks of procedure were discussed. Proper consent obtained. PROCEDURE IN DETAIL: The patient was taken to the operating room. She underwent general LMA, was placed in modified dorsal lithotomy position, prepped and draped in a sterile fashion. SCDs to lower extremities. A speculum was introduced in the vagina. Cervix was now gently dilated to 8 mm. A 2 mm hysteroscope was easily introduced. Normal-appearing endometrial cavity was noted, appeared to be mildly enlarged. Hysteroscope was removed. After dilating the cervix to 8 mm, the gentle curettage was performed. The Roula device was now prepped according to linux network administrator protocol. The device was introduced into the fundus and the arms were released. The balloon insufflated and a total 120 second endometrial ablative process took place. Once completed, the arms were released. Wound desufflated and device removed from the endometrial cavity. Hemostasis appeared evident. Instrument and sponge counts were correct. The patient will go to PACU in stable condition. Specimens to pathology. ADÁN / MALATHI /[id number]
== END 2018-08-08 16:05 | disposition home or self-care (01) ==
LOC: MW.SDS 12:37
PROVIDERS: ATTEND Obstetrics & Gynecology
DX: N92.1 Excessive and frequent menstruation with irregular cycle (principal); E66.9 Obesity, unspecified; Z68.41 Body mass index [BMI] 40.0-44.9, adult; F17.210 Nicotine dependence, cigarettes, uncomplicated; F32.9 Major depressive disorder, single episode, unspecified; F41.9 Anxiety disorder, unspecified; Z88.0 Allergy status to penicillin; Z88.2 Allergy status to sulfonamides; Z88.8 Allergy status to other drugs, medicaments and biological substances
CPT/HCPCS: 58563; 81025; 85027; J1885; J2250; J2405; J2704; J3010; J7120; 88305

== ENCOUNTER 2019-11-21 08:56 | Emergency (ER) | payer BC, MEDICAID ==
[2019-11-21 09:15] VITALS: BP 137/77; PULSE 89
--- NOTE | 2019-11-21 09:43 | EDM.PDOC ---
ED HPI GENERAL MEDICAL PROBLEM - General Chief Complaint: General Stated Complaint: COUGH;SORE THROAT Time Seen by Provider: 11/21/19 09:41 Source of Information: Reports: Patient History Limitations: Reports: No Limitations - History of Present Illness INITIAL COMMENTS - FREE TEXT/NARRATIVE: Patient 34-year-old female with past medical history of pneumonia presenting with chief complaint of mildly productive cough along with sore throat for the past week. Patient states she has been sick for a month intermittently. Patient reports nasal drainage down the back of her throat and a chest congestion and heaviness. Patient states symptoms are similar to prior pneumonia. Patient still feels chills but denies having a fever. Patient denies any significant shortness of breath lower extremity swelling or recent travels anywhere. In addition to that documented in the HPI above, the additional ROS was obtained : Constitutional: Denies fevers or chills Eyes: Denies vision changes ENMT: Per HPI CV: Denies chest pain Resp: Denies SOB GI: Denies vomiting or diarrhea : Denies painful urination MSK: Denies recent trauma Skin: Denies new rashes Neuro: Denies new numbness or tingling or weakness Endocrine: Denies unexpected weight loss Heme: Denies bleeding disorders I have reviewed the triage vital signs Const: Well nourished, well developed, appears stated age Eyes: PERRL, no conjunctival injection HENT: Hoarse voice. Patent airway. No stridor. NCAT, Neck supple without meningismus CV: RRR, Warm, well-perfused extremities RESP: CTAB, Unlabored respiratory effort GI: soft, non-tender, non-distended, no masses MSK: No gross deformities appreciated Skin: Warm, dry. No rashes Neuro: Alert, noteman II-XII grossly intact. Sensation and motor function of extremities grossly intact. Psych: Appropriate mood and affect Assessment and plan Patient is a 34-year-old female with a chief complaint of cough. Fluids and chest x-ray are within normal limits. Patient is comfortable on room air and does not require any supplemental oxygenation. Patient will be given shot of dexamethasone for symptom improvement. Patient given strict return precautions. All questions addressed and answered. Patient agrees with plan. Throat Pain Score (Numeric/FACES): 6 - Related Data Allergies Allergy/AdvReac Type Severity Reaction Status Date / Time amoxicillin [Amoxicillin] Allergy Hives Verified 11/21/19 09:12 metronidazole Allergy cough, Verified 11/21/19 09:12 reddness, heavy chest Penicillins Allergy Hives Verified 11/21/19 09:12 Sulfa (Sulfonamide Allergy Hives Verified 11/21/19 09:12 Antibiotics) Home Meds: Home Meds Acetaminophen [Tylenol] 2 tab PO ASDIRECTED PRN 08/04/18 [History] Ibuprofen 1 - 2 tab PO ASDIRECTED PRN 08/04/18 [History] Past Medical History - Past Health History Medical/Surgical History: Denies Medical/Surgical History HEENT History: Reports: Other (See Below) Other HEENT History: wears glasses occassionally, top denture Gastrointestinal History: Reports: Other (See Below) Other Gastrointestinal History: heartburn with Genitourinary History: Reports: None WASHER HAND History: Reports: , Spontaneous Musculoskeletal History: Reports: None Neurological History: Reports: Migraines Psychiatric History: Reports: Anxiety, Depression Endocrine/Metabolic History: Reports: Diabetes, Gestational, Obesity/BMI 30+ Dermatologic History: Reports: Other (See Below) Other Dermatologic History: MRSA positive - Infectious Disease History Infectious Disease History: Reports: MRSA Other Infectious Disease History: childhood - Past Surgical History Head Surgeries/Procedures: Reports: None Female Surgical History: Reports: Section, D&C, Tubal Ligation Other Female Surgeries/Procedures: x2, salpingectomy with last c/ section Musculoskeletal Surgical History: Reports: Arthroscopic Knee, Other (See Below) Other Musculoskeletal Surgeries/Procedures:: knee surgery, left Social & Family History - Family History Family Medical History: Noncontributory Hematologic: Reports: Other (See Below) Other Hematologic Family History: unknown blood disease and lung disease-father, - Tobacco Use Smoking Status *Q: Current Every Day Smoker Years of Tobacco use: 15 Packs/Tins Daily: 1 - Caffeine Use Caffeine Use: Reports: Coffee, Energy Drinks, Soda, Tea Caffeine Use Comment: 1 each /day - Recreational Drug Use Recreational Drug Use: Yes Recreational Drug Type: Reports: Marijuana/Hashish Recreational Drug Use Frequency: Daily - Living Situation & Occupation Living situation: Reports: Single Occupation: Employed ED ROS GENERAL - Review of Systems Review Of Systems: See Below ED EXAM, GENERAL - Physical Exam Exam: See Below Course - Vital Signs Last Recorded V/S: Last Vital Signs Temp 36.1 C 11/21/19 09:12 Pulse 89 11/21/19 09:12 Resp 22 H 11/21/19 09:12 BP 137/77 11/21/19 09:12 Pulse Ox 96 11/21/19 09:12 - Orders/Labs/Meds Meds: Medications Discontinued Medications Generic Name Dose Route Start Last Admin Trade Name Lauren PRN Reason Stop Dose Admin Dexamethasone 6 mg 11/21/19 10:38 Dexamethasone IM 11/21/19 10:39 ONETIME ONE Departure - Departure Time of Disposition: 10:42 Disposition: Home, Self-Care 01 Clinical Impression: URI (upper respiratory infection) - Discharge Information Instructions: Viral Respiratory Infection, [id number] Referrals: Tre Guerrier MD [Primary Care Provider] - Forms: ED Department Discharge Additional Instructions: The following information is given to patients seen in the emergency department who are being discharged to home. This information is to outline your options for follow-up care. We provide all patients seen in our emergency department with a follow-up referral. The need for follow-up, as well as the timing and circumstances, are variable depending upon the specifics of your emergency department visit. If you don't have a primary care physician on staff, we will provide you with a referral. We always advise you to contact your personal physician following an emergency department visit to inform them of the circumstance of the visit and for follow-up with them and/or the need for any referrals to a consulting specialist. The emergency department will also refer you to a specialist when appropriate. This referral assures that you have the opportunity for follow-up care with a specialist. All of these measure are taken in an effort to provide you with optimal care, which includes your follow-up. Under all circumstances we always encourage you to contact your private physician who remains a resource for coordinating your care. When calling for follow-up care, please make the office aware that this follow-up is from your recent emergency room visit. If for any reason you are refused follow-up, please contact the [facility] Emergency Department at and asked to speak to the emergency department charge nurse. Sepsis Event Note - Evaluation Sepsis Screening Result: No Definite Risk - Focused Exam Vital Signs: Vital Signs Temp Pulse Resp BP Pulse Ox 11/21/19 09:12 36.1 C 89 22 H 137/77 96 Date Exam was Performed: 11/21/19 Time Exam was Performed: 10:41
--- NOTE | 2019-11-21 10:33 | CR ---
Chest: 2 views of the chest were obtained. Comparison: Previous chest x-ray of 12/24/16. Heart size and mediastinum are within normal limits. Lungs are clear. Bony structures appear within normal limits. Old healed rib fracture is noted within the right seventh rib. Impression: 1. Nothing acute is appreciated on 2 view chest x-ray. Diagnostic code #2 This report was dictated in [place] Standard Time
[2019-11-21] MEDS ORDERED: Dexamethasone 10 MG/ML SDV IM ONE (10:38)
== END 2019-11-21 11:24 | disposition home or self-care (01) ==
LOC: MW.ED 08:56
DX: J06.9 Acute upper respiratory infection, unspecified (principal); E66.9 Obesity, unspecified; F17.210 Nicotine dependence, cigarettes, uncomplicated; Z68.42 Body mass index [BMI] 45.0-49.9, adult; Z88.0 Allergy status to penicillin; Z88.1 Allergy status to other antibiotic agents; Z88.2 Allergy status to sulfonamides; Z88.8 Allergy status to other drugs, medicaments and biological substances
CPT/HCPCS: 71046; 87804; 96372; 99283; J1100

== ENCOUNTER 2020-06-26 07:33 | Day surgery (SDC) | payer BC ==
[2020-06-25 10:13] LABS: BLOOD UREA NITROGEN,BUN 13 mg/dL (7.0-18.0); CARBON DIOXIDE,CO2 22.6 mmol/L (21.0-32.0); CHLORIDE,CL 102 mmol/L (98-107); GLUCOSE RANDOM 108 mg/dL (74-106); POTASSIUM,K 4.2 mmol/L (3.5-5.1); SODIUM,NA 136 mmol/L (136-145)
[~2020-06-26 07:33] MED LIST changes: +Acetaminophen 1,000 MG in Premix Bag 1 BAG IV PRN; +Dexamethasone 4 MG/ML 5 ML MDV ONE; +Glycopyrrolate 0.2 MG/ML SDV ONE; +Ketorolac 30 MG/ML SDV ONE; -Lactated Ringers 1,000 ML IV SCH; +Lidocaine 2% 5 ML SDV ONE; +Midazolam 1 MG/ML 2 ML SDV ONE; +Ondansetron 4 MG/2 ML SDV ONE; +Propofol 200 MG/20 ML SDV ONE; +Rocuronium Bromide 50 MG/5 ML Syringe ONE; +Sodium Chloride 0.9% 10 ML SDV IV PRN; +ceFAZolin 2 GM in Premix Bag 1 BAG IV ONE; +fentaNYL 250 MCG/5 ML SDV ONE
[2020-06-26] MEDS ORDERED: Fluorescein 5 ML Vial ONE (07:45)
[2020-06-26] MEDS ORDERED: Sodium Chloride 0.9% 20 ML ONE (07:50)
[2020-06-26] MEDS ORDERED: ceFAZolin 1 GM Vial ONE (07:50)
--- NOTE | 2020-06-26 08:05 | PCM.PREANE ---
Preanesthetic Assessment - Anesthesia/Transfusion/Family Hx Anesthesia History: Prior Anesthesia Without Reaction Other Type of Anesthesia Reaction Comment: DENIES ANY PROBLEMS WITH ANESTHESIA Family History of Anesthesia Reaction: No Transfusion History: No Prior Transfusion(s) Intubation History: Unknown - Review of Systems General: No Symptoms Pulmonary: No Symptoms Cardiovascular: No Symptoms Gastrointestinal: No Symptoms Neurological: No Symptoms Other: Reports: None - Physical Assessment Height: 5 ft 2 in Weight: 109.769 kg ASA Class: 2 Mental Status: Alert & Oriented x3 Airway Class: Mallampati = 2 Dentition: Reports: Dentures (upper and lower) Thyro-Mental Finger Breadths: 3 Mouth Opening Finger Breadths: 2 ROM/Head Extension: Full Lungs: Clear to Auscultation, Normal Respiratory Effort Cardiovascular: Regular Rate, Regular Rhythm - Lab Values: Laboratory Last Values WBC 7.12 K/uL (4.0-11.0) 06/25/20 09:31 RBC 4.79 M/uL (4.30-5.90) 06/25/20 09:31 Hgb 15.7 g/dL (12.0-16.0) 06/25/20 09:31 Hct 45.0 % (36.0-46.0) 06/25/20 09:31 MCV 93.9 fL (80.0-98.0) 06/25/20 09:31 MCH 32.8 pg (27.0-32.0) H 06/25/20 09:31 MCHC 34.9 g/dL (31.0-37.0) 06/25/20 09:31 RDW Std Deviation 43.2 fl (28.0-62.0) 06/25/20 09:31 RDW Coeff of Hemant 13 % (11.0-15.0) 06/25/20 09:31 Plt Count 195 K/uL (150-400) 06/25/20 09:31 MPV 11.70 fL (7.40-12.00) 06/25/20 09:31 Nucleated RBC % 0.0 /100WBC 06/25/20 09:31 Nucleated RBCs # 0 K/uL 06/25/20 09:31 Sodium 136 mmol/L (136-145) 06/25/20 09:31 Potassium 4.2 mmol/L (3.5-5.1) 06/25/20 09:31 Chloride 102 mmol/L (98-107) 06/25/20 09:31 Carbon Dioxide 22.6 mmol/L (21.0-32.0) 06/25/20 09:31 BUN 13 mg/dL (7.0-18.0) 06/25/20 09:31 Creatinine 0.9 mg/dL (0.6-1.0) 06/25/20 09:31 Est Cr Clr Drug Dosing 67.69 mL/min 06/25/20 09:31 Estimated GFR (MDRD) > 60.0 ml/min 06/25/20 09:31 Glucose 108 mg/dL (74-106) H 06/25/20 09:31 Calcium 8.7 mg/dL (8.5-10.1) 06/25/20 09:31 HCG, Qual NEGATIVE (NEG) 06/25/20 09:31 Blood Type O POSITIVE 06/25/20 09:31 Antibody Screen NEGATIVE 06/25/20 09:31 - Allergies Allergies/Adverse Reactions: Allergies Allergy/AdvReac Type Severity Reaction Status Date / Time amoxicillin [Amoxicillin] Allergy Hives Verified 06/13/20 09:51 metronidazole Allergy cough, Verified 06/13/20 09:51 reddness, heavy chest Penicillins Allergy Hives Verified 06/13/20 09:51 Sulfa (Sulfonamide Allergy Hives Verified 06/13/20 09:51 Antibiotics) - Blood Blood Available: No - Anesthesia Plan Pre-Op Medication Ordered: None - Acknowledgements Anesthesia Type Planned: General Anesthesia Pt an Appropriate Candidate for the Planned Anesthesia: Yes Alternatives and Risks of Anesthesia Discussed w Pt/Guardian: Yes Pt/Guardian Understands and Agrees with Anesthesia Plan: Yes PreAnesthesia Questionnaire - Past Health History Medical/Surgical History: Denies Medical/Surgical History HEENT History: Reports: Other (See Below) Other HEENT History: wears glasses occassionally, top denture & lower denture Cardiovascular History: Reports: None Respiratory History: Reports: None Gastrointestinal History: Reports: GERD Genitourinary History: Reports: None [employer] History: Reports: , Spontaneous Musculoskeletal History: Reports: None Neurological History: Reports: Migraines Psychiatric History: Reports: Anxiety, Depression, Other (See Below) (h/o drug abuse) Endocrine/Metabolic History: Reports: Diabetes, Gestational, Obesity/BMI 30+ (BMI 44.3) Hematologic History: Reports: None Immunologic History: Reports: None Oncologic (Cancer) History: Reports: None Dermatologic History: Reports: Other (See Below) Other Dermatologic History: hx of MRSA - Infectious Disease History Infectious Disease History: Reports: MRSA Other Infectious Disease History: childhood - Past Surgical History Head Surgeries/Procedures: Reports: None HEENT Surgical History: Reports: None Cardiovascular Surgical History: Reports: None Respiratory Surgical History: Reports: None GI Surgical History: Reports: None Female Surgical History: Reports: Section, D&C, Tubal Ligation Other Female Surgeries/Procedures: x2, salpingectomy with last c/section Endocrine Surgical History: Reports: None Neurological Surgical History: Reports: None Musculoskeletal Surgical History: Reports: Arthroscopic Knee, Other (See Below) Other Musculoskeletal Surgeries/Procedures:: knee surgery, left Oncologic Surgical History: Reports: None Dermatological Surgical History: Reports: None - SUBSTANCE USE Smoking Status *Q: Current Every Day Smoker (1 ppd) Tobacco Use Within Last Twelve Months: Cigarettes Recreational Drug Type: Reports: Marijuana/Hashish - HOME MEDS Home Medications: Home Meds Esomeprazole Magnesium [Nexium 24Hr] 20 mg PO DAILY PRN 06/13/20 [History] - CURRENT (IN HOUSE) MEDS Current Meds: Current Medications Fentanyl (Sublimaze) 50 mcg IVPUSH Q5M PRN PRN Reason: Pain Lactated Ringer's (Ringers, Lactated) 1,000 mls @ 125 mls/hr IV ASDIRECTED TARAH Acetaminophen 1,000 mg/ Premix 100 mls @ 400 mls/hr IV Q6H PRN PRN Reason: Pain Sodium Chloride (Saline Flush) 10 ml FLUSH ASDIRECTED PRN PRN Reason: Keep Vein Open Sodium Chloride (Saline Flush) 2.5 ml FLUSH ASDIRECTED PRN PRN Reason: Keep Vein Open Sodium Chloride (Normal Saline) 10 ml IV ASDIRECTED PRN PRN Reason: IV Use Discontinued Medications Cefazolin Sodium (Ancef) Confirm Administered Dose 2 gm .ROUTE .STK-MED ONE Stop: 06/26/20 07:51 Dexamethasone (Dexamethasone) Confirm Administered Dose 20 mg .ROUTE .STK-MED ONE Stop: 06/26/20 07:11 Fentanyl (Sublimaze) Confirm Administered Dose 250 mcg .ROUTE .STK-MED ONE Stop: 06/26/20 07:04 Fluorescein Sodium (Ak-Fluor) Confirm Administered Dose 5 ml .ROUTE .STK-MED ONE Stop: 06/26/20 07:46 Glycopyrrolate (Robinul) Confirm Administered Dose 0.8 mg .ROUTE .STK-MED ONE Stop: 06/26/20 07:11 Cefazolin Sodium/Dextrose 2 gm (/ Premix) 50 mls @ 100 mls/hr IV ONETIME ONE Stop: 06/25/20 09:27 Sodium Chloride (Normal Saline) Confirm Administered Dose 20 mls @ as directed .ROUTE .STK-MED ONE Stop: 06/26/20 07:51 Ketorolac Tromethamine (Toradol) Confirm Administered Dose 30 mg .ROUTE .STK-MED ONE Stop: 06/26/20 07:11 Lidocaine (Xylocaine-Mpf 2%) Confirm Administered Dose 5 ml .ROUTE .STK-MED ONE Stop: 06/26/20 07:11 Midazolam HCl (Versed 1 Mg/Ml) Confirm Administered Dose 2 mg .ROUTE .STK-MED ONE Stop: 06/26/20 07:04 Ondansetron HCl (Zofran) Confirm Administered Dose 4 mg .ROUTE .STK-MED ONE Stop: 06/26/20 07:11 Propofol (Diprivan 20 Ml) Confirm Administered Dose 200 mg .ROUTE .STK-MED ONE Stop: 06/26/20 07:04 Rocuronium [place] (Rocuronium [place]) Confirm Administered Dose 50 mg .ROUTE .STK-MED ONE Stop: 06/26/20 07:11
[2020-06-26] MEDS: Lactated Ringers 1,000 ML IV SCH ×2 (08:14→12:48)
[2020-06-26] MEDS ORDERED: HYDROmorphone 2 MG/ML Syringe ONE (09:24)
[2020-06-26] MEDS ORDERED: Rocuronium Bromide 50 MG/5 ML Syringe ONE (09:30)
[2020-06-26] MEDS ORDERED: Furosemide 40 MG/4 ML VIAL ONE (10:30)
[2020-06-26] MEDS ORDERED: Sugammadex Sodium 200 MG/2 ML VIAL ONE (10:53)
[2020-06-26] MEDS ORDERED: Acetaminophen/oxyCODONE 325-5 MG Tab PO PRN (11:08)
[2020-06-26] MEDS ORDERED: Ketorolac 30 MG/ML SDV IVPUSH ONE (11:08)
[2020-06-26] MEDS ORDERED: Promethazine 25 MG/ML SDV IM PRN (11:08)
[2020-06-26] MEDS ORDERED: Morphine 4 MG/ML Syringe IVPUSH PRN (11:08)
[2020-06-26] MEDS ORDERED: Ondansetron 4 MG/2 ML SDV IVPUSH PRN (11:08)
--- NOTE | 2020-06-26 11:11 | PCM.OPNOTE ---
- General Post-Op/Procedure Note Date of Surgery/Procedure: 06/26/20 Operative Procedure(s): TLH,Cysto Anesthesia Technique: General ET Tube Primary Surgeon: Thompson Vick Cardiopulmonary Technician And Eeg Tech: Bailey Burch EBL in mLs: 250 Condition: Good
[2020-06-26] MEDS: fentaNYL 100 MCG/2 ML SDV IVPUSH PRN ×2 (11:51→11:56)
--- NOTE | 2020-06-26 13:16 | PCM.POSTAN ---
POST ANESTHESIA ASSESSMENT - MENTAL STATUS Mental Status: Alert, Oriented - VITAL SIGNS Vital Signs: Last Vital Signs Temp 36.4 C 06/26/20 12:30 Pulse 61 06/26/20 12:58 Resp 12 06/26/20 12:58 BP 104/56 L 06/26/20 12:58 Pulse Ox 95 06/26/20 12:58 - RESPIRATORY Respiratory Status: Respiratory Rate WNL, Airway Patent, O2 Saturation Stable - CARDIOVASCULAR CV Status: Pulse Rate WNL, Blood Pressure Stable - GASTROINTESTINAL GI Status: No Symptoms - PAIN Pain Score: 2 - POST OP HYDRATION Hydration Status: Adequate & Stable - OBSERVATIONS Free Text/Narrative:: No anesthesia problems
[2020-06-26] MEDS: Acetaminophen/oxyCODONE 325-5 MG Tab PO PRN ×2 (14:01→20:41)
--- NOTE | 2020-06-26 16:23 | OR ---
SURGEON: Thompson Vick MD DATE OF PROCEDURE: 06/26/2020 PREOPERATIVE DIAGNOSIS: Menometrorrhagia, failed endometrial ablation. POSTOPERATIVE DIAGNOSIS: Menometrorrhagia, failed endometrial ablation. OPERATIONS PERFORMED: Total laparoscopic hysterectomy and cystoscopy. PRIMARY SURGEON: Thompson Vick MD WRAPPER CASER: Bailey Burch. ESTIMATED BLOOD LOSS: 250 mL. COMPLICATIONS: None. INDICATIONS FOR SURGERY: [place] referred to the admit note. PROCEDURE IN DETAIL: The patient was brought to the OR and properly identified, and after adequate level of anesthesia, the patient was placed in lithotomy position, prepped and draped in sterile fashion as usual. Ferreira catheter placed in the bladder for drainage and colpotomizer manipulator placed in the uterus for manipulation and appropriate balloon is deployed. The operation shifted abdominally. Stab wound done beneath the umbilicus. The Veress needle was placed in the peritoneal cavity and that cavity was insufflated with 6 L of carbon dioxide, and then utilizing the Visiport technique, 5 mm trocar entered centrally. The 5 mm scope went through it. Inspection of the pelvic organs revealed there is adhesion to the left pelvic sidewall and between the bladder and the lower uterine segment from her previous section. A 10/12 trocar placed in the left iliac fossa and 5 mm trocar in the right iliac fossa. The operation started by coagulating and transecting the superior pedicle from both sides preserving both ovaries. The patient already had bilateral salpingectomy. Round ligament coagulated and transected from both sides and then the anterior leaf of the broad ligament dissected downward medially with sharp and blunt dissection utilizing the Taye Harmonic scalpel. I was able to separate the bladder from the lower uterine segment and pushed away completely from the operative field and after that could easily feel the manipulator through the vagina. The uterine vessel coagulated and transected at the level of the manipulator at this time, and after that, circular incision in the vaginal mucosa around the tip of the manipulator was done using the Taye Harmonic scalpel and the uterus was detached and removed. Once it was removed, and pneumoperitoneum re-established by placing vaginal pack in the vagina, thorough irrigation of the pelvis was done. Inspection of the entire operative field and all the pedicles showed no oozing, no bleeding. We proceeded to close the vaginal cuff laparoscopically using 2-0 PDS interrupted sutures. While we were doing that, we asked the Anesthesia personnel to give the patient fluorescein, and after closing the vagina, the abdomen was deflated. The Ferreira catheter was removed. Cystoscopy was performed. The bladder was intact. Both ureteric orifices seen with the dye coming from both of them. Thus, the patency of both ureters verified. Satisfied with this finding, the cystoscope was removed and the bladder was emptied and then the multiple laparoscopic incisions were closed in layer. Instrument and sponge count was correct. The patient tolerated the procedure well and went to recovery room in stable general condition. DONAVAN / MALATHI /[id number]
[2020-06-26] MEDS ORDERED: Ketorolac 30 MG/ML SDV IVPUSH PRN (17:00)
[2020-06-27] MEDS: Acetaminophen/oxyCODONE 325-5 MG Tab PO PRN (03:17)
[2020-06-27 06:41] LABS: BLOOD UREA NITROGEN,BUN 11 mg/dL (7.0-18.0); CHLORIDE,CL 103 mmol/L (98-107); GLUCOSE RANDOM 114 mg/dL (74-106); POTASSIUM,K 4.2 mmol/L (3.5-5.1); SODIUM,NA 136 mmol/L (136-145)
--- NOTE | 2020-06-27 06:51 | PCM48HPAN ---
Post Anesthesia Note - EVALUATION WITHIN 48HRS OF ANESTHETIC Vital Signs in Normal Range: Yes Patient Participated in Evaluation: Yes Respiratory Function Stable: Yes Airway Patent: Yes Cardiovascular Function Stable: Yes Hydration Status Stable: Yes Pain Control Satisfactory: Yes Nausea and Vomiting Control Satisfactory: Yes Mental Status Recovered: Yes Vital Signs: Last Vital Signs Temp 36.6 C 06/27/20 03:19 Pulse 76 06/27/20 03:19 Resp 16 06/27/20 03:19 BP 110/62 06/27/20 03:19 Pulse Ox 95 06/27/20 03:19
[2020-06-27 09:06] VITALS: BP 119/65; PULSE 80
--- NOTE | 2020-06-27 09:16 | PCM.SURGPN ---
- General Info Date of Service: 06/27/20 POD#: 1 Functional Status: Reports: Pain Controlled - Review of Systems General: Reports: No Symptoms HEENT: Reports: No Symptoms Pulmonary: Reports: No Symptoms Cardiovascular: Reports: No Symptoms Gastrointestinal: Reports: No Symptoms Genitourinary: Reports: No Symptoms Musculoskeletal: Reports: No Symptoms Skin: Reports: No Symptoms Neurological: Reports: No Symptoms Psychiatric: Reports: No Symptoms - Patient Data Vitals - Most Recent: Last Vital Signs Temp 36.2 C 06/27/20 07:42 Pulse 80 06/27/20 07:42 Resp 16 06/27/20 07:42 BP 119/65 06/27/20 07:42 Pulse Ox 100 06/27/20 07:42 Weight - Most Recent: 109.769 kg I&O - Last 24 Hours: Intake & Output 06/26/20 06/27/20 06/27/20 22:59 06:59 14:59 Intake Total 1180 850 Output Total 300 1950 Balance 880 -1100 Lab Results Last 24 Hrs: Laboratory Results - last 24 hr 06/27/20 06/27/20 Range/Units 06:09 06:09 WBC 14.26 H (4.0-11.0) K/uL RBC 4.12 L (4.30-5.90) M/uL Hgb 13.2 (12.0-16.0) g/dL Hct 39.3 (36.0-46.0) % MCV 95.4 (80.0-98.0) fL MCH 32.0 (27.0-32.0) pg MCHC 33.6 (31.0-37.0) g/dL RDW Std Deviation 43.6 (28.0-62.0) fl RDW Coeff of Hemant 13 (11.0-15.0) % Plt Count 187 (150-400) K/uL MPV 11.50 (7.40-12.00) fL Neut % (Auto) 80.4 H (48.0-80.0) % Lymph % (Auto) 12.5 L (16.0-40.0) % [place] % (Auto) 6.7 (0.0-15.0) % Eos % (Auto) 0.3 (0.0-7.0) % Baso % (Auto) 0.1 (0.0-1.5) % Neut # (Auto) 11.5 H (1.4-5.7) K/uL Lymph # (Auto) 1.8 (0.6-2.4) K/uL [place] # (Auto) 1.0 H (0.0-0.8) K/uL Eos # (Auto) 0.0 (0.0-0.7) K/uL Baso # (Auto) 0.0 (0.0-0.1) K/uL Nucleated RBC % 0.0 /100WBC Nucleated RBCs # 0 K/uL Sodium 136 (136-145) mmol/L Potassium 4.2 (3.5-5.1) mmol/L Chloride 103 (98-107) mmol/L Carbon Dioxide 24.0 (21.0-32.0) mmol/L BUN 11 (7.0-18.0) mg/dL Creatinine 0.9 (0.6-1.0) mg/dL Est Cr Clr Drug Dosing 67.69 mL/min Estimated GFR (MDRD) > 60.0 ml/min Glucose 114 H (74-106) mg/dL Calcium 8.0 L (8.5-10.1) mg/dL Med Orders - Current: Current Medications Lactated Ringer's (Ringers, Lactated) 1,000 mls @ 125 mls/hr IV ASDIRECTED [facility] Last Admin: 06/26/20 12:48 Dose: 125 mls/hr Documented by: Acetaminophen 1,000 mg/ Premix 100 mls @ 400 mls/hr IV Q6H PRN PRN Reason: Pain Last Admin: 06/26/20 17:09 Dose: 400 mls/hr Documented by: Ketorolac Tromethamine (Toradol) 30 mg IVPUSH Q6H PRN PRN Reason: Pain (severe 7-10) Stop: 07/01/20 17:01 Morphine Sulfate (Morphine) 4 mg IVPUSH Q2H PRN PRN Reason: Pain (severe 7-10) Ondansetron HCl (Zofran) 4 mg IVPUSH Q6H PRN PRN Reason: Nausea/Vomiting Last Admin: 06/26/20 17:23 Dose: 4 mg Documented by: Oxycodone/Acetaminophen (Percocet 325-5 Mg) 1 tab PO Q4H PRN PRN Reason: Pain (moderate 4-6) Oxycodone/Acetaminophen (Percocet 325-5 Mg) 2 tab PO Q4H PRN PRN Reason: Pain (moderate 4-6) Last Admin: 06/27/20 03:17 Dose: 2 tab Documented by: Promethazine HCl (Phenergan) 25 mg IM Q6H PRN PRN Reason: Nausea/Vomiting Sodium Chloride (Saline Flush) 10 ml FLUSH ASDIRECTED PRN PRN Reason: Keep Vein Open Sodium Chloride (Saline Flush) 2.5 ml FLUSH ASDIRECTED PRN PRN Reason: Keep Vein Open Sodium Chloride (Normal Saline) 10 ml IV ASDIRECTED PRN PRN Reason: IV Use Discontinued Medications Cefazolin Sodium (Ancef) Confirm Administered Dose 2 gm .ROUTE .STK-MED ONE Stop: 06/26/20 07:51 Dexamethasone (Dexamethasone) Confirm Administered Dose 20 mg .ROUTE .STK-MED ONE Stop: 06/26/20 07:11 Fentanyl (Sublimaze) Confirm Administered Dose 250 mcg .ROUTE .STK-MED ONE Stop: 06/26/20 07:04 Fentanyl (Sublimaze) 50 mcg IVPUSH Q5M PRN PRN Reason: Pain Last Admin: 06/26/20 11:56 Dose: 50 mcg Documented by: Fluorescein Sodium (Ak-Fluor) Confirm Administered Dose 5 ml .ROUTE .STK-MED ONE Stop: 06/26/20 07:46 Furosemide (Lasix) Confirm Administered Dose 40 mg .ROUTE .STK-MED ONE Stop: 06/26/20 10:31 Glycopyrrolate (Robinul) Confirm Administered Dose 0.8 mg .ROUTE .STK-MED ONE Stop: 06/26/20 07:11 Hydromorphone HCl (Dilaudid) Confirm Administered Dose 2 mg .ROUTE .STK-MED ONE Stop: 06/26/20 09:25 Cefazolin Sodium/Dextrose 2 gm (/ Premix) 50 mls @ 100 mls/hr IV ONETIME ONE Stop: 06/25/20 09:27 Last Admin: 06/26/20 12:45 Dose: Not Given Documented by: Sodium Chloride (Normal Saline) Confirm Administered Dose 20 mls @ as directed .ROUTE .STK-MED ONE Stop: 06/26/20 07:51 Ketorolac Tromethamine (Toradol) Confirm Administered Dose 30 mg .ROUTE .STK-MED ONE Stop: 06/26/20 07:11 Ketorolac Tromethamine (Toradol) 30 mg IVPUSH ONETIME ONE Stop: 06/26/20 11:09 Last Admin: 06/26/20 11:31 Dose: 30 mg Documented by: Lidocaine (Xylocaine-Mpf 2%) Confirm Administered Dose 5 ml .ROUTE .STK-MED ONE Stop: 06/26/20 07:11 Midazolam HCl (Versed 1 Mg/Ml) Confirm Administered Dose 2 mg .ROUTE .STK-MED ONE Stop: 06/26/20 07:04 Ondansetron HCl (Zofran) Confirm Administered Dose 4 mg .ROUTE .STK-MED ONE Stop: 06/26/20 07:11 Propofol (Diprivan 20 Ml) Confirm Administered Dose 200 mg .ROUTE .STK-MED ONE Stop: 06/26/20 07:04 Rocuronium [place] (Rocuronium [place]) Confirm Administered Dose 50 mg .ROUTE .STK-MED ONE Stop: 06/26/20 07:11 Rocuronium [place] (Rocuronium [place]) Confirm Administered Dose 50 mg .ROUTE .STK-MED ONE Stop: 06/26/20 09:31 Sugammadex Sodium ([place]) Confirm Administered Dose 400 mg .ROUTE .STK-MED ONE Stop: 06/26/20 10:54 - Exam Wound/Incisions: Healing Well General: Alert, Oriented HEENT: Pupils Equal Neck: Supple Lungs: Clear to Auscultation, Normal Respiratory Effort Cardiovascular: Regular Rate, Regular Rhythm GI/Abdominal Exam: Normal Bowel Sounds, Soft, Non-Tender, No Organomegaly, No Distention, No Abnormal Bruit, No Mass, Pelvis Stable Extremities: Normal Inspection, Normal Range of Motion, Non-Tender, No Pedal Edema, Normal Capillary Refill Skin: Warm, Dry, Intact Neurological: No New Focal Deficit Psy/Mental Status: Alert, Normal Affect, Normal Mood Sepsis Event Note - Evaluation Sepsis Screening Result: No Definite Risk - Focused Exam Vital Signs: Vital Signs Temp Pulse Resp BP BP Pulse Ox 06/27/20 07:42 36.2 C 80 16 119/65 100 06/27/20 03:19 36.6 C 76 16 110/62 95 06/26/20 23:35 36.2 C 67 16 100/58 L 97 - Problem List Review Problem List Initiated/Reviewed/Updated: Yes - My Orders Last 24 Hours: Active Orders 24 hr Category Date Time Status Patient Status [ADT] Routine ADT 06/26/20 11:08 Active Antiembolic Devices [RC] PER UNIT ROUTINE Care 06/26/20 11:08 Active Notify Provider Vital Signs [RC] ASDIRECTED Care 06/26/20 11:08 Active Oxygen Therapy [RC] ASDIRECTED Care 06/26/20 11:08 Active RT Incentive Spirometry [RC] Q2HWA Care 06/26/20 11:08 Active Up With Assistance [RC] PER UNIT ROUTINE Care 06/26/20 11:08 Active Up ad Kendy [RC] PER UNIT ROUTINE Care 06/26/20 11:08 Active Urinary Catheter Removal [RC] Per Unit Routine Care 06/26/20 11:08 Active Vital Signs [RC] PER UNIT ROUTINE Care 06/26/20 11:08 Active Regular Diet [DIET] Diet 06/26/20 Dinner Active Acetaminophen/oxyCODONE [Percocet 325-5 MG] Med 06/26/20 11:08 Active 1 tab PO Q4H PRN Acetaminophen/oxyCODONE [Percocet 325-5 MG] Med 06/26/20 11:08 Active 2 tab PO Q4H PRN Ketorolac [Toradol] Med 06/26/20 17:00 Active 30 mg IVPUSH Q6H PRN Morphine Med 06/26/20 11:08 Active 4 mg IVPUSH Q2H PRN Ondansetron [Zofran] Med 06/26/20 11:08 Active 4 mg IVPUSH Q6H PRN Promethazine [Phenergan] Med 06/26/20 11:08 Active 25 mg IM Q6H PRN Peripheral IV Discontinue [OM.PC] Routine Oth 06/26/20 11:08 Ordered Sequential Compression Device [OM.PC] Per Unit Routine Oth 06/26/20 11:08 Ordered Resuscitation Status Routine Resus Stat 06/26/20 11:08 Ordered Medication Orders Lactated Ringer's (Ringers, Lactated) 1,000 mls @ 125 mls/hr IV ASDIRECTED [facility] Last Admin: 06/26/20 12:48 Dose: 125 mls/hr Documented by: Infusion: 06/26/20 12:48 Dose: 125 mls/hr Documented by: Admin: 06/26/20 08:14 Dose: 125 mls/hr Documented by: SALVADOR Acetaminophen 1,000 mg/ Premix 100 mls @ 400 mls/hr IV Q6H PRN PRN Reason: Pain Last Admin: 06/26/20 17:09 Dose: 400 mls/hr Documented by: BARB Ketorolac Tromethamine (Toradol) 30 mg IVPUSH Q6H PRN PRN Reason: Pain (severe 7-10) Stop: 07/01/20 17:01 Morphine Sulfate (Morphine) 4 mg IVPUSH Q2H PRN PRN Reason: Pain (severe 7-10) Ondansetron HCl (Zofran) 4 mg IVPUSH Q6H PRN PRN Reason: Nausea/Vomiting Last Admin: 06/26/20 17:23 Dose: 4 mg Documented by: BARB Oxycodone/Acetaminophen (Percocet 325-5 Mg) 1 tab PO Q4H PRN PRN Reason: Pain (moderate 4-6) Oxycodone/Acetaminophen (Percocet 325-5 Mg) 2 tab PO Q4H PRN PRN Reason: Pain (moderate 4-6) Last Admin: 06/27/20 03:17 Dose: 2 tab Documented by: Admin: 06/26/20 20:41 Dose: 2 tab Documented by: Admin: 06/26/20 14:01 Dose: 2 tab Documented by: ANABEL Promethazine HCl (Phenergan) 25 mg IM Q6H PRN PRN Reason: Nausea/Vomiting Sodium Chloride (Saline Flush) 10 ml FLUSH ASDIRECTED PRN PRN Reason: Keep Vein Open Sodium Chloride (Saline Flush) 2.5 ml FLUSH ASDIRECTED PRN PRN Reason: Keep Vein Open Sodium Chloride (Normal Saline) 10 ml IV ASDIRECTED PRN PRN Reason: IV Use - Assessment Assessment (Free Text/Narrative):: Status post total laparoscopic hysterectomy postoperative day #1 the patient is doing well she is ambulatory had pain is under control there is minimum vaginal bleeding. Patient on regular diet tolerates it very well and she is voiding without any problem - Plan Plan (Free Text/Narrative):: I am sending the patient home today the postvasectomy instruction is given to the patient the patient have an appointment in the office in one week prescription for Percocet 7.5/325 for postoperative pain is given.
== END 2020-06-27 10:15 | disposition home or self-care (01) ==
LOC: MW.SDS 07:33 → MW.MS 12:39 → MW.SDS 06-27 10:15
PROVIDERS: ATTEND Obstetrics & Gynecology
DX: N80.0 Endometriosis of uterus (principal); N87.9 Dysplasia of cervix uteri, unspecified; K66.0 Peritoneal adhesions (postprocedural) (postinfection); K21.9 Gastro-esophageal reflux disease without esophagitis; F41.9 Anxiety disorder, unspecified; F32.9 Major depressive disorder, single episode, unspecified; E11.9 Type 2 diabetes mellitus without complications; E66.9 Obesity, unspecified; F17.210 Nicotine dependence, cigarettes, uncomplicated; Z88.0 Allergy status to penicillin; Z88.2 Allergy status to sulfonamides; Z88.8 Allergy status to other drugs, medicaments and biological substances; Z79.899 Other long term (current) drug therapy; Z90.722 Acquired absence of ovaries, bilateral; Z68.41 Body mass index [BMI] 40.0-44.9, adult; Z98.890 Other specified postprocedural states
CPT/HCPCS: 36415; 58570; 80048; 84703; 85025; 85027; 86850; 86900; 86901; A9270; J0131; J0690; J1100; J1170; J1885; J1940; J2001; J2250; J2405; J2704; J3010; J3490; J7120

== ENCOUNTER 2021-07-16 10:27 | Emergency (ER) | payer BC ==
[2021-07-16] MEDS ORDERED: Sodium Chloride 0.9% 2.5 ML Syringe FLUSH PRN (10:28)
[2021-07-16] MEDS ORDERED: Sodium Chloride 0.9% 10 ML Syringe FLUSH PRN (10:28)
--- NOTE | 2021-07-16 10:31 | EDM.PDOC ---
ED HPI GENERAL MEDICAL PROBLEM - General Stated Complaint: TROUBLE BREATHING Time Seen by Provider: 07/16/21 10:27 Source of Information: Reports: Patient History Limitations: Reports: No Limitations - History of Present Illness INITIAL COMMENTS - FREE TEXT/NARRATIVE: HISTORY AND PHYSICAL: History of present illness: Patient is a 36-year-old female who presents to the emergency room with complaints of shortness of breath, cough, fever, chills and generally feeling unwell over the past 4 days. She states when symptoms started on Tuesday she was seen in the walk-in clinic and tested for COVID, this was negative. Symptoms have progressed and she now feels more dyspneic. She does have a history of asthma and has been using her rescue inhaler and nebulizer treatments without improvement. She states her young daughter also has similar symptoms. Patient denies any headache, change in vision, syncope or near syncope. Denies any back pain, abdominal pain, nausea, vomiting, diarrhea, constipation or dysuria. Has not noted any blood in urine or stool. Patient has been eating and drinking appropriately. Review of systems: As per history of present illness and below otherwise all systems reviewed and negative. Past medical history: As per history of present illness and as reviewed below otherwise noncontributory. Surgical history: As per history of present illness and as reviewed below otherwise noncontributory. Social history: See social history for further information Family history: As per history of present illness and as reviewed below otherwise noncontributory. Physical exam: General: Well developed and well nourished. Alert and orientated x 3. Nontoxic in appearance and in no acute distress. Vital signs are stable and have been reviewed by me. Nursing notes were reviewed. HEENT: Atraumatic, normocephalic, pupils equal and reactive bilaterally, negative for conjunctival pallor or scleral icterus, mucous membranes moist, TMs normal bilaterally, throat clear, neck supple, nontender, trachea midline. No drooling or trismus noted. No meningeal signs. No hot potato voice noted. Lungs: Slightly diminished to auscultation bilaterally. No wheezes, rales, or rhonchi. Chest nontender. Normal work of breathing, no accessory muscles used. Dry nonproductive cough is noted. Heart: S1S2, regular rate and rhythm without overt murmur, gallops, or rubs. No JVD. No peripheral edema Abdomen: Soft, nondistended, nontender. Normoactive bowel sounds. Negative for masses or costovertebral tenderness. Pelvis: Stable nontender. Genitourinary/Rectal: Deferred. Skin: Intact, warm, dry. No lesions or rashes noted. Hematologic: No petechiae or purpra. Mucosa appropriate color and normal nail bed color and refill. Extremities: Atraumatic, moves all extremities per self without difficulty or deficits, negative for cords or calf pain. Neurovascular unremarkable. Neuro: Awake, alert, oriented. Cranial nerves II through XII unremarkable. Cerebellum unremarkable. Motor and sensory unremarkable throughout. Exam nonfocal. Psychiatric: Mood and affect are appropriate. Normal thought process. Answering questions appropriately. Please note that the patient was seen and evaluated during the 2019 SARS-CoV-2 novel coronavirus pandemic period. Community viral transmission is ongoing at time of this encounter and the emergency department is operating under pandemic response procedures. Medical Decision Making: Patient is a 36-year-old female who presents to the emergency room with complaints of upper respiratory symptoms. Patient states she has been using her inhaler and duo nebs frequently without any relief. Was tested for Covid on Tuesday, and was negative. We will do for work-up and repeat COVID-19 testing. Vital signs are stable and physical exam is unremarkable with the exception of diminished lung sounds and dry nonproductive cough noted. Due to patient's respiratory history I will treat with Z-Star. Vital signs remained stable. I have talked with the patient about today's findings, in addition to providing specific details for plan of care. Reassessment at the time of disposition demonstrates that the patient is in no acute distress. The patient is stable for discharge, counseling was provided and we discussed in great detail signs and symptoms that would prompt them to return to the Emergency Department. Medication, follow up and supportive care measures were reviewed and discussed. Voices understanding and is agreeable to plan of care. Denies any further questions or concerns at this time. Diagnostics: CBC, CMP, Troponin, EKG< CXR, COVID/Influenza Therapeutics: Solu-Medrol Prescription: Azithromycin Impression: Bronchitis Plan: 1. You were evaluated today on an emergent basis. Your lab work, COVID-19 and chest x-ray are unremarkable. Due to your respiratory history and get a treat you with antibiotics. Continue using your nebulizer and inhaler as needed. 2. You can alternate Tylenol and ibuprofen as needed for pain and fever management. 3. We encourage you to follow up with your primary care provider and/or recommended specialist in the next few days for re-evaluation and further care/management. 4. If your symptoms should worsen, new symptoms develop or any of the signs and symptoms we discussed should arise please return to the emergency room or call 911 (if needed). Definitive disposition and diagnosis as appropriate pending reevaluation and review of above. - Related Data Allergies Allergy/AdvReac Type Severity Reaction Status Date / Time amoxicillin [Amoxicillin] Allergy Hives Verified 07/16/21 10:48 metronidazole Allergy cough, Verified 07/16/21 10:48 reddness, heavy chest Penicillins Allergy Hives Verified 07/16/21 10:48 Sulfa (Sulfonamide Allergy Hives Verified 07/16/21 10:48 Antibiotics) Home Meds: Home Meds Azithromycin [Zithromax] 1 dose PO DAILY 5 Days #6 tab 07/16/21 [Rx] Past Medical History - Past Health History Medical/Surgical History: Denies Medical/Surgical History HEENT History: Reports: Other (See Below) Other HEENT History: wears glasses occassionally, top denture & lower denture Cardiovascular History: Reports: None Respiratory History: Reports: None Gastrointestinal History: Reports: GERD Genitourinary History: Reports: None S [employer] WORKER History: Reports: , Spontaneous Musculoskeletal History: Reports: None Neurological History: Reports: Migraines Psychiatric History: Reports: Anxiety, Depression, Other (See Below) Endocrine/Metabolic History: Reports: Diabetes, Gestational, Obesity/BMI 30+ Hematologic History: Reports: None Immunologic History: Reports: None Oncologic (Cancer) History: Reports: None Dermatologic History: Reports: Other (See Below) Other Dermatologic History: hx of MRSA - Infectious Disease History Infectious Disease History: Reports: MRSA Other Infectious Disease History: childhood - Past Surgical History Head Surgeries/Procedures: Reports: None HEENT Surgical History: Reports: None Cardiovascular Surgical History: Reports: None Respiratory Surgical History: Reports: None GI Surgical History: Reports: None Female Surgical History: Reports: Section, D&C, Tubal Ligation Other Female Surgeries/Procedures: x2, salpingectomy with last c/section Endocrine Surgical History: Reports: None Neurological Surgical History: Reports: None Musculoskeletal Surgical History: Reports: Arthroscopic Knee, Other (See Below) Other Musculoskeletal Surgeries/Procedures:: knee surgery, left Oncologic Surgical History: Reports: None Dermatological Surgical History: Reports: None Social & Family History - Family History Family Medical History: No Pertinent Family History Hematologic: Reports: Other (See Below) Other Hematologic Family History: unknown blood disease and lung disease-father, - Caffeine Use Caffeine Use: Reports: Coffee, Energy Drinks, Soda, Tea Caffeine Use Comment: 1 each /day - Living Situation & Occupation Living situation: Reports: Single Occupation: Employed ED ROS GENERAL - Review of Systems Review Of Systems: Comprehensive ROS is negative, except as noted in HPI. ED EXAM, GENERAL - Physical Exam Exam: See Below (See dictation) Course - Vital Signs Last Recorded V/S: Last Vital Signs Temp 98.4 F 07/16/21 10:30 Pulse 84 07/16/21 12:17 Resp 18 07/16/21 12:17 BP 134/85 07/16/21 12:17 Pulse Ox 92 L 07/16/21 12:17 - Orders/Labs/Meds Orders: Active Orders 24 hr Category Date Time Status Sodium Chloride 0.9% [Saline Flush] Med 07/16/21 10:28 Active 10 ml FLUSH ASDIRECTED PRN Sodium Chloride 0.9% [Saline Flush] Med 07/16/21 10:28 Active 2.5 ml FLUSH ASDIRECTED PRN Isolation [COMM] Routine Oth 07/16/21 10:28 Active Saline Lock Insert [OM.PC] Stat Oth 07/16/21 10:28 Ordered Medication Orders Sodium Chloride (Sodium Chloride 0.9% 10 Ml Syringe) 10 ml FLUSH ASDIRECTED PRN PRN Reason: Keep Vein Open Last Admin: 07/16/21 10:53 Dose: 10 ml Documented by: JODI Sodium Chloride (Sodium Chloride 0.9% 2.5 Ml Syringe) 2.5 ml FLUSH ASDIRECTED PRN PRN Reason: Keep Vein Open Last Admin: 07/16/21 10:53 Dose: 2.5 ml Documented by: JODI Labs: Laboratory Tests 07/16/21 07/16/21 07/16/21 Range/Units 10:50 11:02 11:02 WBC 9.47 (4.0-11.0) K/uL RBC 4.66 (4.30-5.90) M/uL Hgb 15.1 (12.0-16.0) g/dL Hct 42.9 (36.0-46.0) % MCV 92.1 (80.0-98.0) fL MCH 32.4 H (27.0-32.0) pg MCHC 35.2 (31.0-37.0) g/dL RDW Std Deviation 41.9 (28.0-62.0) fl RDW Coeff of Hemant 13 (11.0-15.0) % Plt Count 178 (150-400) K/uL MPV 11.20 (7.40-12.00) fL Neut % (Auto) 63.8 (48.0-80.0) % Lymph % (Auto) 24.4 (16.0-40.0) % Finney % (Auto) 9.9 (0.0-15.0) % Eos % (Auto) 1.5 (0.0-7.0) % Baso % (Auto) 0.4 (0.0-1.5) % Neut # (Auto) 6.0 H (1.4-5.7) K/uL Lymph # (Auto) 2.3 (0.6-2.4) K/uL Finney # (Auto) 0.9 H (0.0-0.8) K/uL Eos # (Auto) 0.1 (0.0-0.7) K/uL Baso # (Auto) 0.0 (0.0-0.1) K/uL Nucleated RBC % 0.0 /100WBC Nucleated RBCs # 0 K/uL Sodium 137 (136-145) mmol/L Potassium 4.0 (3.5-5.1) mmol/L Chloride 104 (98-107) mmol/L Carbon Dioxide 20.1 L (21.0-32.0) mmol/L BUN 12 (7.0-18.0) mg/dL Creatinine 0.8 (0.6-1.0) mg/dL Est Cr Clr Drug Dosing 75.41 mL/min Estimated GFR (MDRD) > 60.0 ml/min Glucose 95 (74-106) mg/dL Calcium 8.5 (8.5-10.1) mg/dL Total Bilirubin 0.9 (0.2-1.0) mg/dL AST 34 (15-37) IU/L ALT 46 (14-63) IU/L Alkaline Phosphatase 77 (46-116) U/L Troponin I < 0.050 (0.000-0.056) ng/mL Total Protein 7.2 (6.4-8.2) g/dL Albumin 3.6 (3.4-5.0) g/dL Globulin 3.6 (2.6-4.0) g/dL Albumin/Globulin Ratio 1.0 (0.9-1.6) Influenza Type A RNA NEGATIVE (NEGATIVE) Influenza Type B RNA NEGATIVE (NEGATIVE) SARS-CoV-2 RNA (ELENITA) NEGATIVE (NEGATIVE) Meds: Medications Generic Name Dose Route Start Last Admin Trade Name Freq PRN Reason Stop Dose Admin Sodium Chloride 10 ml 07/16/21 10:28 07/16/21 10:53 Sodium Chloride 0.9% 10 Ml Syringe FLUSH 10 ml ASDIRECTED PRN Administration Keep Vein Open Sodium Chloride 2.5 ml 07/16/21 10:28 07/16/21 10:53 Sodium Chloride 0.9% 2.5 Ml Syringe FLUSH 2.5 ml ASDIRECTED PRN Administration Keep Vein Open Discontinued Medications Generic Name Dose Route Start Last Admin Trade Name Freq PRN Reason Stop Dose Admin Methylprednisolone Sodium Succinate 125 mg 07/16/21 11:58 07/16/21 12:03 Methylprednisolone Sodium Succinate 125 Mg/2 Ml Sdv IVPUSH 07/16/21 11:59 125 mg ONETIME ONE Administration Departure - Departure Time of Disposition: 12:08 Disposition: Home, Self-Care 01 Clinical Impression: Bronchitis - Discharge Information Prescriptions: Azithromycin [Zithromax] 1 dose PO DAILY 5 Days #6 tab Instructions: Acute Bronchitis, Adult, [id number] Referrals: PCP,None [Primary Care Provider] - Forms: ED Department Discharge Additional Instructions: The following information is given to patients seen in the emergency department who are being discharged to home. This information is to outline your options for follow-up care. We provide all patients seen in our emergency department with a follow-up referral. The need for follow-up, as well as the timing and circumstances, are variable depending upon the specifics of your emergency department visit. If you don't have a primary care physician on staff, we will provide you with a referral. We always advise you to contact your personal physician following an emergency department visit to inform them of the circumstance of the visit and for follow-up with them and/or the need for any referrals to a consulting specialist. The emergency department will also refer you to a specialist when appropriate. This referral assures that you have the opportunity for follow-up care with a specialist. All of these measure are taken in an effort to provide you with optimal care, which includes your follow-up. Under all circumstances we always encourage you to contact your private physician who remains a resource for coordinating your care. When calling for follow-up care, please make the office aware that this follow-up is from your recent emergency room visit. If for any reason you are refused follow-up, please contact the [facility] Emergency Department at and asked to speak to the emergency department charge nurse. [facility] [address] [place], [place] [id number] [place] [address] Thank you for choosing the [facility] emergency department in [place] for your medical needs today. It was a pleasure caring for you. Today you were seen in the emergency department for respiratory symptoms. 1. You were evaluated today on an emergent basis. Your lab work, COVID-19 and chest x-ray are unremarkable. Due to your respiratory history and get a treat you with antibiotics. Continue using your nebulizer and inhaler as needed. 2. You can alternate Tylenol and ibuprofen as needed for pain and fever management. 3. We encourage you to follow up with your primary care provider and/or recommended specialist in the next few days for re-evaluation and further care/management. 4. If your symptoms should worsen, new symptoms develop or any of the signs and symptoms we discussed should arise please return to the emergency room or call 911 (if needed). Sepsis Event Note (ED) - Focused Exam Vital Signs: Vital Signs Temp Pulse Resp BP Pulse Ox 07/16/21 12:17 84 18 134/85 92 L 07/16/21 10:30 98.4 F 89 40 H 113/76 96 - My Orders Last 24 Hours: My Active Orders 07/16/21 10:28 Sodium Chloride 0.9% [Saline Flush] 10 ml FLUSH ASDIRECTED PRN Sodium Chloride 0.9% [Saline Flush] 2.5 ml FLUSH ASDIRECTED PRN Isolation [COMM] Routine Saline Lock Insert [OM.PC] Stat - Assessment/Plan Last 24 Hours: My Active Orders 07/16/21 10:28 Sodium Chloride 0.9% [Saline Flush] 10 ml FLUSH ASDIRECTED PRN Sodium Chloride 0.9% [Saline Flush] 2.5 ml FLUSH ASDIRECTED PRN Isolation [COMM] Routine Saline Lock Insert [OM.PC] Stat
--- NOTE | 2021-07-16 10:32 | PCM.EKG ---
#1 Interpretation EKG Date: 07/16/21 Time: 10:28 Rhythm: NSR Rate (Beats/Min): 79 [place]: Normal P-Wave: Present QRS: Normal ST-T: Normal QT: Normal UT/PQ Interval: 130 EKG Interpretation Comments: no acute ischemic changes identified
--- NOTE | 2021-07-16 11:23 | CR ---
INDICATION: Shortness of breath TECHNIQUE: Chest 1 views COMPARISON: 11/21/2019 FINDINGS: Cardiovascular and mediastinum: Heart size and vasculature are normal in caliber and appearance. Lungs and pleural spaces: Lungs are clear. No sign of infiltrate or mass. No sign of pleural effusion. No pneumothorax. Bones and soft tissues: No significant findings. IMPRESSION: No acute findings and no significant changes from the prior exam. Dictated by Jose Crow MD @ 07/16/2021 11:22:49 AM (Electronically Signed)
[2021-07-16 11:44] LABS: BLOOD UREA NITROGEN,BUN 12 mg/dL (7.0-18.0); CARBON DIOXIDE,CO2 20.1 mmol/L (21.0-32.0); CHLORIDE,CL 104 mmol/L (98-107); GLUCOSE RANDOM 95 mg/dL (74-106); SODIUM,NA 137 mmol/L (136-145)
[2021-07-16 11:47] LABS: CORONAVIRUS COVID-19 NAA NEGATIVE (NEGATIVE); INFLUENZA A NAA NEGATIVE (NEGATIVE); INFLUENZA B NAA NEGATIVE (NEGATIVE)
[2021-07-16] MEDS ORDERED: methylPREDNISolone Sodium Succinate 125 MG/2 ML SDV IVPUSH ONE (11:58)
[2021-07-16 12:17] VITALS: BP 134/85; PULSE 84
== END 2021-07-16 13:30 | disposition home or self-care (01) ==
LOC: MW.ED 10:27
DX: J40 Bronchitis, not specified as acute or chronic (principal); E66.9 Obesity, unspecified; Z68.41 Body mass index [BMI] 40.0-44.9, adult; Z88.0 Allergy status to penicillin; Z88.2 Allergy status to sulfonamides; Z88.8 Allergy status to other drugs, medicaments and biological substances; Z20.822 Contact with and (suspected) exposure to COVID-19
CPT/HCPCS: 0240U; 36415; 71045; 80053; 84484; 85025; 93005; 96374; 99285; J2930

== ENCOUNTER 2023-04-19 07:57 | Day surgery (SDC) | payer BC ==
[~2023-04-19 07:57] MED LIST changes: -Acetaminophen 1,000 MG in Premix Bag 1 BAG IV PRN; -Dexamethasone 4 MG/ML 5 ML MDV ONE; -Glycopyrrolate 0.2 MG/ML SDV ONE; -Ketorolac 30 MG/ML SDV ONE; +Lactated Ringers 1,000 ML IV SCH; -Lidocaine 2% 5 ML SDV ONE; -Midazolam 1 MG/ML 2 ML SDV ONE; -Ondansetron 4 MG/2 ML SDV ONE; -Propofol 200 MG/20 ML SDV ONE; -Rocuronium Bromide 50 MG/5 ML Syringe ONE; -Sodium Chloride 0.9% 10 ML SDV IV PRN; +Sodium Chloride 0.9% 20 ML SDV IV PRN; -ceFAZolin 2 GM in Premix Bag 1 BAG IV ONE; -fentaNYL 250 MCG/5 ML SDV ONE
[2023-04-19] MEDS ORDERED: Propofol 200 MG/20 ML SDV ONE (08:47)
[2023-04-19] MEDS ORDERED: Water For Injection, Sterile 20 ML ONE (08:47)
[2023-04-19] MEDS ORDERED: Dexmedetomidine 200 MCG/2 ML SDV ONE (08:47)
[2023-04-19 10:53] VITALS: BP 102/57; PULSE 70
== END 2023-04-19 10:38 | disposition home or self-care (01) ==
LOC: MW.SDS 07:57
PROVIDERS: ATTEND Surgery
DX: K59.09 Other constipation (principal); R10.84 Generalized abdominal pain; F41.1 Generalized anxiety disorder; G47.00 Insomnia, unspecified; E66.01 Morbid (severe) obesity due to excess calories; E28.2 Polycystic ovarian syndrome; F17.210 Nicotine dependence, cigarettes, uncomplicated; J45.909 Unspecified asthma, uncomplicated; F32.A Depression, unspecified; Z88.0 Allergy status to penicillin; Z88.2 Allergy status to sulfonamides; Z79.85 Long-term (current) use of injectable non-insulin antidiabetic drugs; Z79.899 Other long term (current) drug therapy; Z98.51 Tubal ligation status; Z90.710 Acquired absence of both cervix and uterus; Z88.8 Allergy status to other drugs, medicaments and biological substances
CPT/HCPCS: 82947; J2704; J3490; J7120

== ENCOUNTER 2023-09-19 09:23 | Emergency (ER) | payer BC ==
[2023-09-19] MEDS ORDERED: Ondansetron 4 MG/2 ML SDV IVPUSH ONE (09:36)
[2023-09-19] MEDS ORDERED: Sodium Chloride 0.9% 1,000 ML IV ONE (09:36)
[2023-09-19] MEDS ORDERED: Alum Hydro/Mag Hydro/Simeth XS 15 ML, Metoclopramide 5 MG, Lidocaine 2% 5 ML PO ONE ×3 (09:37)
[2023-09-19] MEDS ORDERED: Morphine 2 MG/ML SYRINGE IVPUSH ONE (09:37)
[2023-09-19] MEDS ORDERED: Morphine 4 MG/ML Syringe IVPUSH ONE (09:38)
[2023-09-19 10:03] LABS: BASOPHILS ABSOLUTE AUTO 0.08 K/uL (0.00-0.20); BASOPHILS PERCENT AUTO 0.8 % (0.0-1.0); EOSINOPHILS ABSOLUTE AUTO 0.48 K/uL (0.00-0.45); EOSINOPHILS PERCENT AUTO 5.1 % (0.0-6.0); HEMATOCRIT 45.7 % (37.0-47.0); IMMATURE GRAN ABSOLUTE AUTO 0.03 K/uL (0.00-0.05); IMMATURE GRAN PERCENT AUTO 0.3 % (0.0-0.4); LYMPHOCYTES ABSOLUTE AUTO 3.14 K/uL (1.00-4.80); LYMPHOCYTES PERCENT AUTO 33.3 % (24.0-44.0); MEAN CORPUSCULAR HEMOGLOBIN 31.8 pg (28.0-32.0); MEAN CORPUSCULAR VOLUME 90.9 fL (83.0-99.0); MEAN PLATELET VOLUME 10.2 fL (9.4-12.3); MONOCYTES ABSOLUTE AUTO 0.59 K/uL (0.00-0.80); MONOCYTES PERCENT AUTO 6.3 % (0.0-8.0); NEUTROPHILS ABSOLUTE AUTO 5.11 K/uL (1.80-7.70); NEUTROPHILS PERCENT AUTO 54.2 % (41.0-71.0); PLATELET COUNT,PLT 235 K/uL (150-400); RED BLOOD CELL COUNT 5.03 M/uL (4.10-5.30); WHITE BLOOD CELL COUNT,WBC 9.43 K/uL (3.9-11.3)
[2023-09-19 10:14] LABS: A/G RATIO 1.2 (0.9-1.6); ALBUMIN 4.3 g/dL (3.4-5.0); BILIRUBIN TOTAL 0.8 mg/dL (0.2-1.0); CALCIUM 9.5 mg/dL (8.5-10.1); CARBON DIOXIDE,CO2 24.8 mmol/L (21.0-32.0); CREATININE 1.1 mg/dL (0.6-1.0); EST CRCL DRUG DOSING (CG) 56.24 mL/min; POTASSIUM,K 4.6 mmol/L (3.5-5.1)
[2023-09-19] MEDS ORDERED: HYDROmorphone 1 MG/ML Syringe IM ONE (10:47)
[2023-09-19 10:50] LABS: APPEARANCE,URINE CLEAR; BILIRUBIN,URINE NEGATIVE (NEGATIVE); COLOR,URINE YELLOW; GLUCOSE,URINE NEGATIVE (NEGATIVE); KETONES,URINE NEGATIVE (NEGATIVE); LEUKOCYTE ESTERASE,URINE NEGATIVE (NEGATIVE); NITRITE,URINE NEGATIVE (NEGATIVE); OCCULT BLOOD,URINE NEGATIVE (NEGATIVE); PROTEIN,URINE NEGATIVE (NEGATIVE); UROBILINOGEN,URINE 0.2 EU/dL (<2.0)
[2023-09-19 12:28] VITALS: BP 113/75; PULSE 76
== END 2023-09-19 12:29 | disposition home or self-care (01) ==
LOC: MW.ED 09:23
DX: R10.31 Right lower quadrant pain (principal); J45.909 Unspecified asthma, uncomplicated; F17.210 Nicotine dependence, cigarettes, uncomplicated; Z88.0 Allergy status to penicillin; Z88.1 Allergy status to other antibiotic agents; Z88.2 Allergy status to sulfonamides; Z79.899 Other long term (current) drug therapy
CPT/HCPCS: 36415; 74176; 80053; 81003; 83690; 84703; 85025; 93005; 96361; 96372; 96374; 96375; 99284; A9270; J1170; J2270; J2405; J7030; 93010